=== PATIENT | male | born 1980 | race Caucasian/White ===

== ENCOUNTER → 2019-02-03 | Outpatient (CLI) | payer OTHER | LOC: CARD 11:55 | PROVIDERS: ATTEND Family Medicine | DX: G47.33 Obstructive sleep apnea (adult) (pediatric) (principal); Z82.49 Family history of ischemic heart disease and other diseases of the circulatory system | CPT/HCPCS: 93306 ==

== ENCOUNTER → 2019-02-10 | Outpatient (CLI) | payer OTHER ==
[~2019-02-10] MED LIST: CATHETER FLUSH 10 ML SYR IV PRN
[2019-02-10 13:31] VITALS: BP 116/75
[2019-02-10 13:34] VITALS: BP 115/74
[2019-02-10 13:42] VITALS: BP 145/80
[2019-02-10 13:43] VITALS: BP 186/81
[2019-02-10 13:44] VITALS: BP 186/81
[2019-02-10 13:45] VITALS: BP 148/77
--- NOTE | 2019-02-11 06:51 | STRESS TEST ---
DATE OF SERVICE: 02/10/2019 EXERCISE MYOVIEW STRESS TEST REPORT REFERRING PHYSICIAN: Dr. Vy Camarillo. Baseline heart rate is 53. Baseline blood pressure 123/75. Baseline EKG sinus rhythm with no ischemic changes. In summary, the patient was injected with 10.52 mCi of technetium-99 Myoview and the resting images were obtained. Then, the patient started exercising with a baseline heart rate, blood pressure and EKG mentioned above. The patient was able to exercise for a total of 6 minutes on standard Tello protocol. With peak exercise level, blood pressure was 186/81. EKG was showing minimal nondiagnostic changes. During recovery, heart rate and blood pressure returned to baseline. EKG returned to baseline. The resting and stress images were reviewed and compared in the short axis, horizontal long axis, and vertical long axis views. Review of the images showed good radiotracer uptake with no significant ischemia or infarction. SSS is 4, SDS 1, TID value 1.08. On the gated images, the left ventricle appeared to be slightly prominent with normal contractility. Calculated ejection fraction 49%. CONCLUSION: 1. Fair exercise tolerance, a total of 6 minutes on standard Tello protocol, total of 7.3 METS achieving 85% of maximum expected heart rate. 2. Appropriate heart rate and blood pressure response to exercise returned to baseline during recovery. 3. Minimal nondiagnostic EKG changes with exercise returned to baseline during recovery. 4. No significant ischemia or infarction on SPECT images. 5. Slightly prominent left ventricle systolic function is in the lower normal limit. Calculated ejection fraction 49%. Job ID: [id number] DocumentID: [id number] Dictated Date: 02/11/2019 06:26:41 Model And Mold Maker Date: 02/11/2019 06:50:42 Dictated By: FLORENTINO CERVANTES MD
== END ==
LOC: CARD 11:42
PROVIDERS: ATTEND Family Medicine
DX: G47.33 Obstructive sleep apnea (adult) (pediatric) (principal); Z82.49 Family history of ischemic heart disease and other diseases of the circulatory system
CPT/HCPCS: 78452; 93017

== ENCOUNTER 2021-12-07 12:44 | Emergency (ER) | payer SELFPAY ==
[~2021-12-07] VITALS: Ht 175.3 cm; Wt 166.9 kg
[2021-12-07 13:43] LABS: BASOPHILS # (AUTO) 0.1 10^3/uL (0.0-0.1); BASOPHILS % (AUTO) 2 % (0-10); EOSINOPHILS # (AUTO) 0.2 10^3/uL (0.0-0.3); EOSINOPHILS % (AUTO) 2 % (0-10); HEMATOCRIT 39 % (40-54); HEMOGLOBIN 12.8 g/dL (13.3-17.7); LYMPHOCYTES # (AUTO) 1.1 10^3/uL (1.0-4.0); LYMPHOCYTES % (AUTO) 18 % (12-44); MEAN CORPUSCULAR HEMOGLOBIN 33 pg (25-34); MEAN CORPUSCULAR HGB CONC 33 g/dL (32-36); MEAN CORPUSCULAR VOLUME 100 fL (80-99); MEAN PLATELET VOLUME 8.5 fL (9.0-12.2); MONOCYTES # (AUTO) 0.8 10^3/uL (0.0-1.0); MONOCYTES % (AUTO) 14 % (0-12); NEUTROPHILS # (AUTO) 3.9 10^3/uL (1.8-7.8); NEUTROPHILS % (AUTO) 64 % (42-75); PLATELET COUNT 158 10^3/uL (130-400); WHITE BLOOD COUNT 6.2 10^3/uL (4.3-11.0)
[2021-12-07 13:52] LABS: ALBUMIN 2.9 GM/DL (3.2-4.5)
[2021-12-07 13:53] LABS: POTASSIUM 3.8 MMOL/L (3.6-5.0)
[2021-12-07 13:54] LABS: CALCIUM 8.5 MG/DL (8.5-10.1)
[2021-12-07 13:55] LABS: INR 1.6 (0.8-1.4); PROTHROMBIN TIME PATIENT 19.9 SEC (12.2-14.7); TOTAL PROTEIN 8.4 GM/DL (6.4-8.2)
[2021-12-07 13:59] LABS: CREATININE SERUM 0.62 MG/DL (0.60-1.30)
--- NOTE | 2021-12-07 13:59 | ED GI ---
General Chief Complaint: Abdominal/GI Problems Stated Complaint: ABDOMEN DRAINED Nursing Triage Note: PT AMB TO RM 5 W REPORTS OF "FLUID ON ABDOMEN" ACCORDING TO HIS DOCTOR. 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 A&OX4, DENIES PAIN. PT C/O SOA W EXERTION. Source of Information: Patient Exam Limitations: No Limitations History of Present Illness Date Seen by Provider: Dec 07, 2021 Time Seen by Provider: 13:56 Initial Comments To ER with reports of abdominal distention secondary to his known alcoholic cirrhosis. He continues to drink alcohol but states that he has not been drinking as much lately. He was referred to ER by [facility] due to increasing dyspnea secondary to his abdominal distention. He had his first and only previous paracentesis done at [facility] in [place] in mid September. Timing/Duration: 1-2 Days Severity/Quality: Moderate Location: Generalized Abdomen Radiation: No Radiation Activities at Onset: None Allergies and Home Medications Allergies Coded Allergies: No Known Drug Allergies (Unverified , 12/07/21) Patient Home Medication List Home Medication List Reviewed: Yes Review of Systems Review of Systems Constitutional: see HPI EENTM: No Symptoms Reported Respiratory: No Symptoms Reported Cardiovascular: No Symptoms Reported Gastrointestinal: See HPI, Abdominal Pain, Nausea Genitourinary: No Symptoms Reported Musculoskeletal: no symptoms reported Skin: no symptoms reported Psychiatric/Neurological: No Symptoms Reported Endocrine: No Symptoms Reported Hematologic/Lymphatic: No Symptoms Reported Past Orkdbdg-Vkpncr-Rlxodr Hx Patient Social History Tobacco Use?: No Smoking Status: Former Smoker Use of E-Cig and/or Vaping dev: No Substance use?: No Alcohol Use?: No Immunizations Up To Date Influenza Vaccine Up-to-Date: Yes; Up-to-Date First/Initial COVID19 Vaccinat: 10/2021 COVID19 Vaccine Optometrist: MODERNA Physical Exam Vital Signs Vital Signs - First Documented 12/07/21 13:10 Temp 36.4 Pulse 106 Resp 24 B/P (MAP) 153/107 (122) Pulse Ox 95 O2 Delivery Room Air Capillary Refill : Less Than 3 Seconds Height/Weight/BMI Height: '" Weight: lbs. oz. kg; 54.00 BMI Method: General Appearance: WD/WN, no apparent distress HEENT: PERRL/EOMI, normal ENT inspection Neck: non-tender, full range of motion Respiratory: no respiratory distress, no accessory muscle use Gastrointestinal: normal bowel sounds, soft, other (Markedly distended. Bedside ultrasound shows about 8 to 10 cm of fluid between the abdominal wall and bowel.) Extremities: normal range of motion, non-tender, other (Thickened edematous darkened skin consistent with lipodermatosclerosis bilateral lower extremities.) Neurologic/Psychiatric: alert, normal mood/affect, oriented x 3 Skin: normal color, warm/dry Progress/Results/Core Measures Results/Orders Lab Results Laboratory Tests Test 12/07/21 13:36 12/07/21 15:34 Range/Units White Blood Count 6.2 4.3-11.0 10^3/uL Red Blood Count 3.89 L 4.30-5.52 10^6/uL Hemoglobin 12.8 L 13.3-17.7 g/dL Hematocrit 39 L 40-54 % Mean Corpuscular Volume 100 H 80-99 fL Mean Corpuscular Hemoglobin 33 25-34 pg Mean Corpuscular Hemoglobin Concent 33 32-36 g/dL Red Cell Distribution Width 17.3 H 10.0-14.5 % Platelet Count 158 130-400 10^3/uL Mean Platelet Volume 8.5 L 9.0-12.2 fL Immature Granulocyte % (Auto) 1 % Neutrophils (%) (Auto) 64 42-75 % Lymphocytes (%) (Auto) 18 12-44 % Monocytes (%) (Auto) 14 H 0-12 % Eosinophils (%) (Auto) 2 0-10 % Basophils (%) (Auto) 2 0-10 % Neutrophils # (Auto) 3.9 1.8-7.8 10^3/uL Lymphocytes # (Auto) 1.1 1.0-4.0 10^3/uL Monocytes # (Auto) 0.8 0.0-1.0 10^3/uL Eosinophils # (Auto) 0.2 0.0-0.3 10^3/uL Basophils # (Auto) 0.1 0.0-0.1 10^3/uL Immature Granulocyte # (Auto) 0.0 0.0-0.1 10^3/uL Prothrombin Time 19.9 H 12.2-14.7 SEC INR Comment 1.6 H 0.8-1.4 Sodium Level 135 135-145 MMOL/L Potassium Level 3.8 3.6-5.0 MMOL/L Chloride Level 98 98-107 MMOL/L Carbon Dioxide Level 29 21-32 MMOL/L Anion Gap 8 5-14 MMOL/L Blood Urea Nitrogen 4 L 7-18 MG/DL Creatinine 0.62 0.60-1.30 MG/DL Estimat Glomerular Filtration Rate 122 BUN/Creatinine Ratio 6 Glucose Level 94 70-105 MG/DL Calcium Level 8.5 8.5-10.1 MG/DL Corrected Calcium 9.4 8.5-10.1 MG/DL Total Bilirubin 3.4 H 0.1-1.0 MG/DL Aspartate Amino Transf (AST/SGOT) 58 H 5-34 U/L Alanine Aminotransferase (ALT/SGPT) 20 0-55 U/L Alkaline Phosphatase 73 40-136 U/L Total Protein 8.4 H 6.4-8.2 GM/DL Albumin 2.9 L 3.2-4.5 GM/DL Body Fluid Source PERITON Body Fluid Color RED Body Fluid Appearance MKD CLDY Body Fluid WBC 1450 /uL Body Fluid RBC 4850 /uL Body Fluid Polynuclear WBCs 4 % Body Fluid Mononuclear WBCs 38 % Body Fluid Lymphocytes 14 % Body Fluid Eosinophils 0 % Body Fluid Other Cells 10 % Body Fluid Glucose 88 MG/DL Body Fluid Total Protein 2.5 G/DL Body Fluid Albumin 1.1 G/DL Body Fluid Lactate Dehydrogenase 156 U/L Body Fluid Amylase 10 U/L My Orders Orders - LANI WATT DATA SUPPORT ANALYST Cbc With Automated Diff (12/07/21 13:25) Comprehensive Metabolic Panel (12/07/21 13:25) Protime With Inr (12/07/21 13:25) Albumin 25% 25 Gm/100 Ml (Albumin 25% 25 (12/07/21 15:15) Albumin 25% 25 Gm/100 Ml (Albumin 25% 25 (12/07/21 15:45) Body Fluid Cell Count (12/07/21 15:34) Body Fluid Culture (12/07/21 15:34) Albumin,Body Fluid (12/07/21 15:34) Amylase,Body Fluid (12/07/21 15:34) Glucose,Body Fluid (12/07/21 15:34) Ldh,Body Fluid (12/07/21 15:34) Total Protein,Body Fluid (12/07/21 15:34) Medications Given in ED Current Medications Medications Dose Ordered Sig/Gaurang Route Start Time Stop Time Status Last Admin Dose Admin Albumin Human 100 ml @ 50 mls/hr ONCE ONCE IV 12/07/21 15:15 12/07/21 17:14 DC 12/07/21 15:51 50 MLS/HR Albumin Human 100 ml @ 50 mls/hr ONCE ONCE IV 12/07/21 15:45 12/07/21 17:44 DC 12/07/21 17:50 50 MLS/HR Vital Signs/I&O 12/07/21 13:10 Temp 36.4 Pulse 106 Resp 24 B/P (MAP) 153/107 (122) Pulse Ox 95 O2 Delivery Room Air Blood Pressure Mean: 122 Departure Communication (Admissions) 1540-Dr. Mcdaniels has been here to place ultrasound-guided paracentesis drain. 5 L were removed with Vacutainer, 2 additional liters removed via gravity through the bag that comes with the kit. Remained hemodynamically stable. I did order 50 g of albumin IV (7 g of albumin /L removed). Impression Primary Impression: Ascites Disposition: HOME, SELF-CARE Condition: Stable Departure-Patient Inst. Decision time for Depature: 15:43 Referrals: JUSTA MCDANIELS HOLLY R MD (PCP/Family) Primary Care Physician Patient Instructions: Fluid in the Belly (Ascites) (DC) Add. Discharge Instructions: 1. Call Dr. Mcdaniels's office on Friday to make an appointment to be seen. Return to ER for any concerns. Keep the dressing on until Friday. Return to ER for any fevers pain or redness at the insertion site or continued leakage of ascites fluid from the puncture site. All discharge instructions reviewed with patient and/or family. Voiced understanding. LANI WATT APRN Dec 07, 2021 13:59
--- NOTE | 2021-12-07 14:09 | Consultation - Surgery ---
SOO CISNEROS 12/07/21 1409: History of Present Illness History of Present Illness Patient Consulted On(stevan/time) 12/07/21 14:03 Date Seen by Provider: Dec 07, 2021 Time Seen by Provider: 14:03 Reason for Visit: Abdominal distension History of Present Illness Mr. Chu is a 41 year old male with a past medical history of alcoholic cirrhosis and anxiety who presented to the ED today with complaint of abdominal swelling. He reports that he had a paracentesis done in [place] about 6 weeks ago. During his previous paracentesis he was hospitalized for a skin infection. He had 20 L drained the last time, 10 L the first day and 10 L the second day. He has been taking spironolactone and furosemide for the last 6 weeks. He says that 2-3 weeks ago his abdomen started to swell again and it has progressively gotten worse. He denies pain but he endorses discomfort and associated symptoms such as dyspnea, urinary incontinence, and early satiety. He reports feeling pressure on his abdomen. He says that certain positions can help improve the pressure a little bit but exertion and movement make it worse. He denies any radiation of his swelling. He says the swelling is better in the morning and seems to be worse at the end of the day. He reports the severity of his symptoms as a 7/10. Allergies and Home Medications Allergies Coded Allergies: No Known Drug Allergies (Unverified , 12/07/21) Past Odsctkm-Fieztj-Cwgtdy Hx Patient Social History Smoking Status: Former Smoker (Quit 1.5 years ago. Smoked 1 PPD for 8 years.) Type Used: Cigarettes Alcohol Use?: Yes Have you traveled recently?: No Surgeries History of Surgeries: Yes (Orchioplexy as child) Surgeries: Abdominal (Ventral hernia) Respiratory History of Respiratory Disorde: No Cardiovascular History of Cardiac Disorders: No Neurological History of Neurological Disord: No Genitourinary History of Genitourinary Disor: No Gastrointestinal History of Gastrointestinal Di: Yes Gastrointestinal Disorders: Cirrhosis (Alcoholic cirrhosis) Musculoskeletal History of Musculoskeletal Dis: No Endocrine History of Endocrine Disorders: No HEENT History of HEENT Disorders: No Cancer History of Cancer: No Psychosocial History of Psychiatric Problem: Yes Behavioral Health Disorders: Anxiety Integumentary History of Skin or Integumenta: Yes (Cyst excision from thigh) Family Medical History Significant Family History: Heart Disease (Uncle), CVA (Mother) Review of Systems-General Constitutional: No chills, No fever; weight gain Respiratory: No cough; short of breath Cardiovascular: No chest pain; palpitations Gastrointestinal: No abdominal pain; loss of appetite; No nausea, No vomiting Genitourinary: No frequency; incontinence Musculoskeletal: No back pain, No joint pain Skin: rash (LE stasis dermatitis B/L) Psychiatric/Neurological: Anxiety; Denies Headache Physical Exam-General Problems Physical Exam Vital Signs Vital Signs - First Documented 12/07/21 13:10 Temp 36.4 Pulse 106 Resp 24 B/P (MAP) 153/107 (122) Pulse Ox 95 O2 Delivery Room Air Capillary Refill : Less Than 3 Seconds General Appearance: WD/WN, no apparent distress, obese HEENT: PERRL/EOMI, scleral icterus (R), scleral icterus (L); No pale conjunctivae (R), No pale conjunctivae (L) Neck: non-tender; No lymphadenopathy (R), No lymphadenopathy (L) Respiratory: chest non-tender, lungs clear, normal breath sounds, no respiratory distress, no accessory muscle use Cardiovascular: normal peripheral pulses, no murmur, bradycardia, other (LE B/L edema) Peripheral Pulses: 1+ Dorsalis Pedis (R), 1+ Left Dors-Pedis (L); 2+ Radial Pulses (R), 2+ Radial Pulses (L) Gastrointestinal: non tender, abnormal bowel sounds (Absent bowel sounds most likely 2/2 fluid), distended; No guarding Extremities: non-tender, pedal edema, other (B/L LE stasis dermatitis) Neurologic/Psychiatric: butcher chicken and fish II-XII nml as tested, no motor/sensory deficits, alert, normal mood/affect, oriented x 3 Skin: jaundice Lymphatic: no adenopathy (Head and neck) Data Review Labs Laboratory Tests 12/07/21 13:36: White Blood Count 6.2, Red Blood Count 3.89L, Hemoglobin 12.8L, Hematocrit 39L, Mean Corpuscular Volume 100H, Mean Corpuscular Hemoglobin 33, Mean Corpuscular Hemoglobin Concent 33, Red Cell Distribution Width 17.3H, Platelet Count 158, Mean Platelet Volume 8.5L, Immature Granulocyte % (Auto) 1, Neutrophils (%) (Auto) 64, Lymphocytes (%) (Auto) 18, Monocytes (%) (Auto) 14H, Eosinophils (%) (Auto) 2, Basophils (%) (Auto) 2, Neutrophils # (Auto) 3.9, Lymphocytes # (Auto) 1.1, Monocytes # (Auto) 0.8, Eosinophils # (Auto) 0.2, Basophils # (Auto) 0.1, Immature Granulocyte # (Auto) 0.0, Prothrombin Time 19.9H, INR Comment 1.6H, Sodium Level 135, Potassium Level 3.8, Chloride Level 98, Carbon Dioxide Level 29, Anion Gap 8, Blood Urea Nitrogen 4L, Creatinine 0.62, Estimat Glomerular Filtration Rate 122, BUN/Creatinine Ratio 6, Glucose Level 94, Calcium Level 8.5, Corrected Calcium 9.4, Aspartate Amino Transf (AST/SGOT) 58H, Alanine Aminotransferase (ALT/SGPT) 20, Alkaline Phosphatase 73, Total Protein 8.4H, Albumin 2.9L Assessment/Plan Assessment/Plan Assessment/Plan Assessment: Abdominal swelling - 2/2 alcoholic cirrhosis Lower extremity edema Venous stasis dermatitis Anxiety Plan: The plan is to do a bedside paracentesis in the ED. Consent has been obtained. Outpatient follow up Pain control as needed Advise alcohol cessation Alcohol education JUSTA KNIGHT DO 12/08/21 0954: History of Present Illness History of Present Illness History of Present Illness Consult requested by Bimal Escobar for symptomatic ascites. Patient seen evaluated in the emergency department. Patient is a 41-year-old male with history of alcoholic cirrhosis and fatty liver disease. Patient states that he has been having worsening abdominal distention. Patient had to have a paracentesis approximately 6 weeks ago in [place]. Patient states that he had approximately 20 L drained during that hospital admission. Patient states that he has continued to swell back up. He has mild to moderate discomfort with the worse abdominal pain being of a 7 out of 10. He states that nothing seems to make it better or worse except for certain positions or activities. It does cause him to have worsening breathing and early satiety. Patient denies any nausea vomiting fever sweats chills shortness of breath or chest pain at this time Allergies and Home Medications Allergies Coded Allergies: No Known Drug Allergies (Unverified , 12/07/21) Patient Home Medication List Home Medication List Reviewed: Yes Past Fablncr-Bxuvsx-Tujjcm Hx Patient Social History Smoking Status: Former Smoker (Quit 1.5 years ago. Smoked 1 PPD for 8 years.) Type Used: Cigarettes Surgeries Surgeries: Abdominal (Ventral hernia) Reviewed Nursing Assessment Reviewed/Agree w Nursing PMH: Yes Family Medical History Significant Family History: No Pertinent Family Hx Review of Systems-General Constitutional: No chills, No fever; weight gain Respiratory: No cough; short of breath Cardiovascular: No chest pain; palpitations Gastrointestinal: abdominal pain, loss of appetite; No nausea, No vomiting Genitourinary: No frequency; incontinence Musculoskeletal: No back pain, No joint pain Skin: rash (LE stasis dermatitis B/L) Psychiatric/Neurological: Anxiety; Denies Headache All Other Systems Reviewed Negative Unless Noted: Yes (Negative excepted noted.) Physical Exam-General Problems Physical Exam General Appearance: WD/WN, no apparent distress, obese HEENT: PERRL/EOMI, normal ENT inspection Neck: non-tender, supple Respiratory: chest non-tender, no respiratory distress, no accessory muscle use Cardiovascular: regular rate, rhythm, no JVD, other (LE B/L edema) Gastrointestinal: non tender, distended (With fluid shift); No guarding Rectal: deferred Back: normal inspection, no CVA tenderness Extremities: non-tender, pedal edema, other (B/L LE stasis dermatitis) Neurologic/Psychiatric: no motor/sensory deficits, alert, normal mood/affect, oriented x 3 Skin: jaundice (Minimal) Lymphatic: no adenopathy (Head and neck) Assessment/Plan Assessment/Plan Assessment/Plan Alcoholic cirrhosis Symptomatic ascites Morbid obesity Lower extremity edema Venous stasis dermatitis Patient with symptomatic ascites. Patient discussed risk and benefits of having paracentesis performed. Patient understands risk and benefits and wishes to h ave this performed. We will proceed here in the emergency department. Patient will follow-up in the office in a couple weeks. Patient may benefit from Pleurx catheter placement intra-abdominal unit for continued drainage to where he does not have to come to the hospital and can drain it himself. Patient will follow- up in the office in a 1-2 weeks DATE OF SERVICE: 12/08/21 PREOPERATIVE DIAGNOSIS: Symptomatic abdominal ascites. POSTOPERATIVE DIAGNOSIS: Symptomatic abdominal ascites. PROCEDURE: Ultrasound-guided paracentesis. SURGEON: Justa Knight DO ANESTHESIA: Local. ESTIMATED BLOOD LOSS: Scant. COMPLICATIONS: None. INDICATIONS: The patient is a 41 male with symptomatic ascites.The patient understands risks and benefits of procedure and wished to proceed. Consent was signed and on the chart. DESCRIPTION OF PROCEDURE: The patient was prepped and draped in sterile fashion after ultrasound was used to isolate the best pocket for drainage. Local anesthetic was infiltrated. An 11 blade scalpel was then used to make a small incision. The [id number]-C-[id number] needle and catheter were then advanced through the abdominal wall until straw-colored fluid was withdrawn. The catheter was advanced, and the needle was removed. The 7000 mL of straw-colored fluid was withdrawn. The catheter was then removed, and a sterile bandage was applied. The patient tolerated procedure well without any complications. Patient was given albumin prior to discharge Supervisory-Addendum Brief Verification & Attestation Participated in pt care: history, MDM, physical Personally performed: exam, history, MDM, supervision of care Care discussed with: Medical Student Procedures: n/a, other (Performed by me) Results interpretation: Verified all documentation Verification and Attestation of Medical Student E/M Service A medical student performed and documented this service in my presence. I reviewed and verified all information documented by the medical student and made modifications to such information, when appropriate. I personally performed the physical exam and medical decision making. Justa Knight, Dec 07, 2021,19:54 SOO CISNEROS Dec 07, 2021 14:09 JUSTA KNIGHT DO Dec 08, 2021 09:54
[2021-12-07 14:57] LABS: BILIRUBIN,TOTAL 3.4 MG/DL (0.1-1.0)
[2021-12-07] MEDS ORDERED: ALBUMIN 25% 25 GM/100 ML 100 ML IV ONE ×2 (15:15→15:45)
[2021-12-07 16:33] LABS: ALBUMIN,BODY FLUID 1.1 G/DL; AMYLASE,BODY FLUID 10 U/L; GLUCOSE,BODY FLUID 88 MG/DL; LDH,BODY FLUID 156 U/L; TOTAL PROTEIN,BODY FLUID 2.5 G/DL
[2021-12-07 18:02] LABS: BODY FLUID SOURCE PERITON
[2021-12-07 18:03] LABS: BF OTHER CELLS 10 %; BODY FLUID APPEARENCE MKD CLDY; BODY FLUID COLOR RED; BODY FLUID RBC COUNT 4850 /uL; BODY FLUID WBC TOTAL COUNT 1450 /uL; LYMPHOCYTES,BODY FLUID 14 %
[2021-12-07 20:36] VITALS: BP 129/68
== END 2021-12-07 20:36 | disposition home or self-care (01) ==
LOC: EDUNIT# 12:44 → ER 12:47
DX: R18.8 Other ascites (principal); Z87.891 Personal history of nicotine dependence
CPT/HCPCS: 36415; 80053; 82042; 82150; 82945; 83615; 84157; 85025; 85610; 87070; 87205; 89051

== ENCOUNTER 2022-03-10 05:40 | Emergency (ER) | payer SELFPAY ==
[~2022-03-10] VITALS: Ht 172.7 cm; Wt 150.0 kg
[2022-03-10] MEDS ORDERED: ONDANSETRON 4 MG/2 ML (SDV) Z0FRAN ONE (05:44)
[2022-03-10] MEDS ORDERED: PANTOPRAZOLE 40 MG (PROTONIX) VIAL IV ONE (05:45)
[2022-03-10] MEDS ORDERED: PANTOPRAZOLE 40 MG (PROTONIX) VIAL ONE (05:45)
[2022-03-10] MEDS ORDERED: ONDANSETRON 4 MG/2 ML (SDV) Z0FRAN IVP ONE (05:45)
[2022-03-10 06:26] LABS: ALBUMIN 2.8 GM/DL (3.2-4.5); MONOCYTES % (AUTO) 8 % (0-12)
[2022-03-10 06:27] LABS: BASOPHILS # (AUTO) 0.1 10^3/uL (0.0-0.1); BASOPHILS % (AUTO) 1 % (0-10); EOSINOPHILS # (AUTO) 0.2 10^3/uL (0.0-0.3); EOSINOPHILS % (AUTO) 2 % (0-10); HEMATOCRIT 36 % (40-54); HEMOGLOBIN 11.8 g/dL (13.3-17.7); LYMPHOCYTES % (AUTO) 10 % (12-44); MEAN CORPUSCULAR HEMOGLOBIN 32 pg (25-34); MEAN CORPUSCULAR HGB CONC 33 g/dL (32-36); MEAN CORPUSCULAR VOLUME 96 fL (80-99); MEAN PLATELET VOLUME 10.6 fL (9.0-12.2); MONOCYTES # (AUTO) 0.8 10^3/uL (0.0-1.0); NEUTROPHILS # (AUTO) 7.5 10^3/uL (1.8-7.8); NEUTROPHILS % (AUTO) 78 % (42-75); PLATELET COUNT 89 10^3/uL (130-400); POTASSIUM 3.5 MMOL/L (3.6-5.0); WHITE BLOOD COUNT 9.6 10^3/uL (4.3-11.0)
[2022-03-10 06:28] LABS: CALCIUM 8.2 MG/DL (8.5-10.1)
[2022-03-10 06:29] LABS: TOTAL PROTEIN 7.9 GM/DL (6.4-8.2)
[2022-03-10 06:31] LABS: BILIRUBIN,TOTAL 2.2 MG/DL (0.1-1.0); INR 1.5 (0.8-1.4); PROTHROMBIN TIME PATIENT 18.7 SEC (12.2-14.7)
[2022-03-10 06:33] LABS: CREATININE SERUM 0.7 MG/DL (0.60-1.30)
[2022-03-10 06:36] LABS: MAGNESIUM 2.1 MG/DL (1.6-2.4)
[2022-03-10 06:37] LABS: CREATINE KINASE MB 0.9 NG/ML (<6.6)
[2022-03-10 06:37] LABS: AMPHETAMINE SCREEN, URINE NEGATIVE (NEGATIVE); BARBITURATE SCREEN URINE NEGATIVE (NEGATIVE); BENZODIAZEPINES SCREEN URINE NEGATIVE (NEGATIVE); CANNABINOID SCREEN, URINE NEGATIVE (NEGATIVE); COCAINE SCREEN URINE NEGATIVE (NEGATIVE); METHADONE STAT NEGATIVE (NEGATIVE); METHAMPHETAMINE SCREEN URINE S NEGATIVE (NEGATIVE); OPIATE SCREEN URINE NEGATIVE (NEGATIVE); OXYCODONE STAT NEGATIVE (NEGATIVE); PROPOXYPHENE STAT NEGATIVE (NEGATIVE); TRICYCLIC ANTIDEPRESSANTS SCRE NEGATIVE (NEGATIVE)
[2022-03-10] MEDS ORDERED: ANTACID SUSP 30 ML UDC (MYLANTA) PO ONE ×2 (06:45→20:15)
[2022-03-10] MEDS ORDERED: LIDOCAINE 2% VISCOUS 15 ML UDC PO ONE ×2 (06:45→20:15)
--- NOTE | 2022-03-10 06:58 | ED Chest Pain ---
General Chief Complaint: Chest Pain Stated Complaint: ABD PAIN,CP Nursing Triage Note: C/o SOA, abdominal pain and chest pain 0430. Reports that he has hx of liver disease with paracentesis. He admits that he was drinking last night. Emesis x 1 upon EMS to ER cot transfer Source: patient, EMS, old records Exam Limitations: no limitations History of Present Illness Date Seen by Provider: Mar 10, 2022 Time Seen by Provider: 05:41 Initial Comments This is a 41-year-old gentleman with alcoholic liver failure and significant ascites presents to the emergency room via EMS with complaints of chest pain and epigastric pain starting around 0400. He had concurrent nausea. He began vomiting on arrival to the ER. There is no evidence of coffee-ground emesis or hematemesis. Patient is afebrile. He experienced shortness of breath associated with this burning, squeezing chest pain. He is tender in the epigastrium but not diffusely tender in his markedly distended abdomen. He is afebrile. Despite his significant issues with liver failure, he continues to drink alcohol as recently as last night. Patient was initially seen and evaluated on arrival by Dr. Hwang who also placed orders. Verbal report was received from Dr. Hwang at shift change. Patient had a visit in November of this year during which paracentesis was performed by Dr. Knight. Allergies and Home Medications Allergies Coded Allergies: No Known Drug Allergies (Unverified , 12/07/21) Patient Home Medication List Home Medication List Reviewed: Yes Cefdinir (Cefdinir) 300 Mg Capsule, 300 MG PO BID Prescribed by: MATHEUS ZENG on 03/10/22 0930 Famotidine (Acid Passenger Vessel Chef (FAMOTIDINE)) 20 Mg Tablet, 20 MG PO BID Prescribed by: MATHEUS ZENG on 03/10/22 1646 Review of Systems Review of Systems Constitutional: no symptoms reported EENTM: No Symptoms Reported Respiratory: See HPI Cardiovascular: See HPI Gastrointestinal: See HPI Genitourinary: No Symptoms Reported Musculoskeletal: no symptoms reported Skin: no symptoms reported Psychiatric/Neurological: No Symptoms Reported Endocrine: No Symptoms Reported Hematologic/Lymphatic: No Symptoms Reported Past Tcoxopq-Bhctxt-Axzzfx Hx Patient Social History Tobacco Use?: No Substance use?: No Alcohol Use?: Yes Alcohol type: Hard Liquor Alcohol Frequency: Daily Pt feels they are or have been: No Immunizations Up To Date Influenza Vaccine Up-to-Date: Yes; Up-to-Date First/Initial COVID19 Vaccinat: Could not report exact dates but admits that he is current Past Medical History Surgery/Hospitalization HX: paracentesis x 2 Surgeries: Yes (Orchioplexy as child) Abdominal Respiratory: No Cardiac: No Neurological: No Genitourinary: No Gastrointestinal: Yes Cirrhosis Musculoskeletal: No Endocrine: No HEENT: No Cancer: No Psychosocial: Yes Anxiety Integumentary: Yes (Cyst excision from thigh) Family Medical History No Pertinent Family Hx Physical Exam Vital Signs Vital Signs - First Documented 03/10/22 06:00 O2 Flow Rate 2.00 Capillary Refill : Less Than 3 Seconds Height, Weight, BMI Height: '" Weight: lbs. oz. kg; 50.00 BMI Method: General Appearance: No Apparent Distress, WD/WN, Other (Patient reportedly was in some distress with vomiting on arrival) HEENT: PERRL/EOMI, Normal ENT Inspection Neck: Normal Inspection; No JVD Respiratory: Lungs Clear, Normal Breath Sounds, No Respiratory Distress Cardiovascular: Regular Rate, Rhythm, No Murmur Gastrointestinal: Normal Bowel Sounds, Distended (Markedly), Tenderness (Focused in the epigastrium), Other (Venous distention across a distended abdomen. Erythema with edematous skin over the lower abdominal wall.) Neurologic/Psychiatric: Alert, Oriented x3, No Motor/Sensory Deficits, Normal Mood/Affect Skin: Normal Color, Warm/Dry, Other (Erythematous edematous skin over the lower abdominal wall indicative of cellulitis) Progress/Results/Core Measures Results/Orders Lab Results Laboratory Tests Test 03/10/22 06:10 03/10/22 06:13 03/10/22 07:40 Range/Units White Blood Count 9.6 4.3-11.0 10^3/uL Red Blood Count 3.72 L 4.30-5.52 10^6/uL Hemoglobin 11.8 L 13.3-17.7 g/dL Hematocrit 36 L 40-54 % Mean Corpuscular Volume 96 80-99 fL Mean Corpuscular Hemoglobin 32 25-34 pg Mean Corpuscular Hemoglobin Concent 33 32-36 g/dL Red Cell Distribution Width 15.3 H 10.0-14.5 % Platelet Count 89 L 130-400 10^3/uL Mean Platelet Volume 10.6 9.0-12.2 fL Immature Granulocyte % (Auto) 0 % Neutrophils (%) (Auto) 78 H 42-75 % Lymphocytes (%) (Auto) 10 L 12-44 % Monocytes (%) (Auto) 8 0-12 % Eosinophils (%) (Auto) 2 0-10 % Basophils (%) (Auto) 1 0-10 % Neutrophils # (Auto) 7.5 1.8-7.8 10^3/uL Lymphocytes # (Auto) 1.0 1.0-4.0 10^3/uL Monocytes # (Auto) 0.8 0.0-1.0 10^3/uL Eosinophils # (Auto) 0.2 0.0-0.3 10^3/uL Basophils # (Auto) 0.1 0.0-0.1 10^3/uL Immature Granulocyte # (Auto) 0.0 0.0-0.1 10^3/uL Percent Immature Platelet Fraction 11.0 H 0.0-7.6 % Prothrombin Time 18.7 H 12.2-14.7 SEC INR Comment 1.5 H 0.8-1.4 Activated Partial Thromboplast Time 37 H 24-35 SEC Sodium Level 140 135-145 MMOL/L Potassium Level 3.5 L 3.6-5.0 MMOL/L Chloride Level 102 98-107 MMOL/L Carbon Dioxide Level 24 21-32 MMOL/L Anion Gap 14 5-14 MMOL/L Blood Urea Nitrogen 4 L 7-18 MG/DL Creatinine 0.70 0.60-1.30 MG/DL Estimat Glomerular Filtration Rate 118 BUN/Creatinine Ratio 6 Glucose Level 119 H 70-105 MG/DL Calcium Level 8.2 L 8.5-10.1 MG/DL Corrected Calcium 9.2 8.5-10.1 MG/DL Magnesium Level 2.1 1.6-2.4 MG/DL Total Bilirubin 2.2 H 0.1-1.0 MG/DL Aspartate Amino Transf (AST/SGOT) 59 H 5-34 U/L Alanine Aminotransferase (ALT/SGPT) 19 0-55 U/L Alkaline Phosphatase 118 40-136 U/L Total Creatine Kinase 42 30-200 U/L Creatine Kinase MB 0.9 <6.6 NG/ML Myoglobin 26.2 10.0-92.0 NG/ML Troponin I < 0.028 < 0.028 <0.028 NG/ML C-Reactive Protein High Sensitivity 10.53 H 0.00-0.50 MG/DL B-Type Natriuretic Peptide 58.7 <100.0 PG/ML Total Protein 7.9 6.4-8.2 GM/DL Albumin 2.8 L 3.2-4.5 GM/DL Amylase Level 24 L 25-125 U/L Lipase 29 8-78 U/L Serum Alcohol 99 H <10 MG/DL Urine Opiates Screen NEGATIVE NEGATIVE Urine Oxycodone Screen NEGATIVE NEGATIVE Urine Methadone Screen NEGATIVE NEGATIVE Urine Propoxyphene Screen NEGATIVE NEGATIVE Urine Barbiturates Screen NEGATIVE NEGATIVE Ur Tricyclic Antidepressants Screen NEGATIVE NEGATIVE Urine Phencyclidine Screen NEGATIVE NEGATIVE Urine Amphetamines Screen NEGATIVE NEGATIVE Urine Methamphetamines Screen NEGATIVE NEGATIVE Urine Benzodiazepines Screen NEGATIVE NEGATIVE Urine Cocaine Screen NEGATIVE NEGATIVE Urine Cannabinoids Screen NEGATIVE NEGATIVE My Orders Orders - MATHEUS LOPEZ MD Lidocaine 2% Viscous 15 Ml (Xylocaine Vi (03/10/22 06:45) Antacid Suspension (Mylanta Suspension (03/10/22 06:45) Troponin I [place] (03/10/22 08:00) Ceftriaxone 1 Gm Pre-Mix (Rocephin 1 Gm (03/10/22 09:26) Albumin 25% 25 Gm/100 Ml (Albumin 25% 25 (03/10/22 11:30) Albumin 25% 25 Gm/100 Ml (Albumin 25% 25 (03/10/22 11:30) General/Regular (03/10/22 Dinner) Medications Given in ED Vital Signs/I&O 03/10/22 03/10/22 03/10/22 03/10/22 05:42 05:42 05:42 06:00 Temp 36.2 36.2 36.2 Pulse 98 98 98 Resp B/P (MAP) 156/99 (118) 135/89 135/89 Pulse Ox 95 95 O2 Delivery Room Air Room Air Room Air Nasal Cannula O2 Flow Rate 2.00 03/10/22 03/10/22 06:10 20:39 Pulse 86 Resp 24 B/P (MAP) 132/85 Pulse Ox 95 97 O2 Delivery Nasal Cannula O2 Flow Rate 2.00 Blood Pressure Mean: 104 Progress Progress Note #1: Time: 07:47 Progress Note EKG and troponin were unremarkable. Chest x-ray revealed some pleural effusion and possible infiltrate of the right. Patient will be treated for possible pneumonia. GI cocktail was well-tolerated and almost completely relieved his pain which was rated as 5/10 prior to treatment. It also significantly improved his tenderness. He feels much better. We are awaiting a delta troponin at 0800. Patient's enormous ascites is likely contributing to his symptoms and he may benefit significantly from another paracentesis. I have contacted Dr. Knight who will present to the ER and evaluate the patient for possible paracentesis this morning. I discussed the patient's social circumstances with him. He reports living alone and having no insurance or financial social media designer such as Medicaid. He ideally would like to get back to work full-time, but that seems unlikely by this providers judgment based on his current condition and social circumstances. He is rather uncapped with urine soaked clothes, stool on his feet, and extremely long toenails. He ambulates with a walker. I have advised him to meet with his ed case manager at [facility] and revisit the possibility of obtaining Medicaid, other social media designer, disability, alcohol rehab, physical rehab, and perhaps placement in a senior care or assisted living facility. Progress Note #2: Progress Note Dr. Knight presented to the emergency room to perform paracentesis. Bedside ultrasound confirmed sufficient fluid space and paracentesis was successful. Patient tolerated paracentesis well. After 4 L a dose of albumin was administered. In total, 10 L of fluid was drained. Drain was then removed by nursing staff and incision site dressed. Blood pressure remained stable. Patient did not experience any alcohol withdrawal. Discharge was delayed as patient had no transportation had home. We did discuss the need for alcohol cessation to help slow the progression of liver failure. Advised him to stop drinking under the direction of a physician and to do so with a taper rather than abrupt cessation. Antibiotics were prescribed for possible pneumonia and the remnant of abdominal wall cellulitis. See discharge instructions. Initial ECG Impression Date: Mar 10, 2022 Initial ECG Impression Time: 05:51 Initial ECG Rate: 90 Initial ECG Rhythm: Normal Sinus Comment Sinus rhythm with no ST elevation or depression. Prolonged QT interval with QTC at 515 ms. No axis deviation. Diagnostic Imaging Diagonstic Imaging: Xray Plain Films/CT/US/NM/MRI: chest Comments Chest x-ray viewed by me and report reviewed. See report below: NAME: MALISSA MURRAY [facility] REC#: [id number] PT STATUS: REG ER : 1980 PHYSICIAN: SORIN HWANG DO ADMIT DATE: 03/10/22/ER Draft Date of Exam:03/10/22 CHEST 1 VIEW, AP/PA ONLY INDICATION: Chest pain. Time of Exam: 6:25 AM No prior studies are available for comparison. The heart is enlarged. There appears to be infiltrate in the right lung base. There is also a small right effusion. Left lung is clear. There is no pneumothorax. IMPRESSION: Right basilar infiltrate and small right effusion. Dictated on workstation # [id number] Dict: 03/10/22 0656 Trans: 03/10/22 0658 JUDY [id number] Interpreted by: SARAHI DUENAS MD Departure Impression Primary Impression: Chest pain Qualified Codes: R07.9 - Chest pain, unspecified Additional Impressions: Nausea & vomiting Qualified Codes: R11.2 - Nausea with vomiting, unspecified Liver failure Qualified Codes: K72.10 - Chronic hepatic failure without coma Alcohol dependence Qualified Codes: F10.29 - Alcohol dependence with unspecified alcohol-induce d disorder Thrombocytopenia Abdominal wall cellulitis Disposition: 01 HOME, SELF-CARE Condition: Improved Departure-Patient Inst. Decision time for Depature: 17:00 Referrals: SELENA OATES MD (PCP/Family) Primary Care Physician Patient Instructions: ALCOHOL AND SUBSTANCE ABUSE, Liver Failure Diet Add. Discharge Instructions: Complete your antibiotics as prescribed. Start Pepcid 20 mg twice daily to help with heartburn and stomach pain. You are advised to quit alcohol completely to prevent worsening of your liver disease. Please do so under the direction of your physician and do not stop drinking alcohol abruptly as this may cause dangerous withdrawals. Follow-up with your primary care provider soon as possible. Return to the emergency room if you have worsening symptoms. All discharge instructions reviewed with patient and/or family. Voiced understanding. Scripts Famotidine (Acid Passenger Vessel Chef (FAMOTIDINE)) 20 Mg Tablet 20 MG PO BID, #60 TAB Prov: MATHEUS LOPEZ MD 03/10/22 Cefdinir (Cefdinir) 300 Mg Capsule 300 MG PO BID, #20 CAP 0 Refills Prov: MATHEUS LOPEZ MD 03/10/22 Copy Copies To 1: SELENA OATES MD Copies To 2: JUSTA KNIGHT JOSHUA T MD Mar 10, 2022 06:58
[2022-03-10] MEDS ORDERED: cefTRIAXone 1 GM PRE-MIX 50 ML IV STA (09:26)
[2022-03-10] MEDS ORDERED: CEFD300C3 PO (09:30)
--- NOTE | 2022-03-10 10:33 | Consultation - Surgery ---
SOO CISNEROS 03/10/22 1032: History of Present Illness History of Present Illness Patient Consulted On(stevan/time) 03/10/22 10:27 Date Seen by Provider: Mar 10, 2022 Time Seen by Provider: 09:05 Reason for Visit: Abdominal pain History of Present Illness Mr. Chu is a 41 year old male with a pas tmedical history of alcoholic liver failure and ascites. He presented to the ED with complaints of chest pain and abdominal pain with associated nausea and vomiting. He reported he has had abdominal swelling for many weeks. He continues to drink alcohol. He had a paracentesis performed by us in November. He has not seen a hepatoligist. Allergies and Home Medications Allergies Coded Allergies: No Known Drug Allergies (Unverified , 12/07/21) Patient Home Medication List Cefdinir (Cefdinir) 300 Mg Capsule, 300 MG PO BID Prescribed by: MATHEUS ZENG on 03/10/22 0930 Famotidine (Acid Investigation Clerk (FAMOTIDINE)) 20 Mg Tablet, 20 MG PO BID Prescribed by: MATHEUS ZENG on 03/10/22 1646 Past Ptosovm-Jgolbh-Rpiyce Hx Patient Social History Type Used: Cigarettes Alcohol Use?: Yes Have you traveled recently?: No Surgeries History of Surgeries: Yes (Orchioplexy as child) Surgeries: Abdominal Respiratory History of Respiratory Disorde: No Cardiovascular History of Cardiac Disorders: No Neurological History of Neurological Disord: No Genitourinary History of Genitourinary Disor: No Gastrointestinal History of Gastrointestinal Di: Yes Gastrointestinal Disorders: Cirrhosis Musculoskeletal History of Musculoskeletal Dis: No Endocrine History of Endocrine Disorders: No HEENT History of HEENT Disorders: No Cancer History of Cancer: No Psychosocial History of Psychiatric Problem: Yes Behavioral Health Disorders: Anxiety Integumentary History of Skin or Integumenta: Yes (Cyst excision from thigh) Family Medical History Significant Family History: No Pertinent Family Hx Review of Systems-General Constitutional: No chills, No fever Respiratory: No cough; short of breath Cardiovascular: chest pain; No palpitations Gastrointestinal: abdominal pain, nausea, vomiting Skin: change in color (Jaundiced), other (Panniculitis) Physical Exam-General Problems Physical Exam Vital Signs Vital Signs - First Documented 03/10/22 06:00 O2 Flow Rate 2.00 Capillary Refill : Less Than 3 Seconds General Appearance: WD/WN, mild distress (Patient uncomfortable and in pain) HEENT: PERRL/EOMI, scleral icterus (R), scleral icterus (L) Neck: full range of motion, supple Respiratory: no respiratory distress, no accessory muscle use Cardiovascular: normal peripheral pulses, regular rate, rhythm Gastrointestinal: distended; No guarding Extremities: normal range of motion, non-tender, normal inspection Neurologic/Psychiatric: alert, normal mood/affect, oriented x 3 Skin: warm/dry, jaundice Data Review Labs Laboratory Tests 03/10/22 06:10: White Blood Count 9.6, Red Blood Count 3.72L, Hemoglobin 11.8L, Hematocrit 36L, Mean Corpuscular Volume 96, Mean Corpuscular Hemoglobin 32, Mean Corpuscular Hemoglobin Concent 33, Red Cell Distribution Width 15.3H, Platelet Count 89L, Mean Platelet Volume 10.6, Immature Granulocyte % (Auto) 0, Neutrophils (%) (Auto) 78H, Lymphocytes (%) (Auto) 10L, Monocytes (%) (Auto) 8, Eosinophils (%) (Auto) 2, Basophils (%) (Auto) 1, Neutrophils # (Auto) 7.5, Lymphocytes # (Auto) 1.0, Monocytes # (Auto) 0.8, Eosinophils # (Auto) 0.2, Basophils # (Auto) 0.1, Immature Granulocyte # (Auto) 0.0, Percent Immature Platelet Fraction 11.0H, Prothrombin Time 18.7H, INR Comment 1.5H, Activated Partial Thromboplast Time 37H, Sodium Level 140, Potassium Level 3.5L, Chloride Level 102, Carbon Dioxide Level 24, Anion Gap 14, Blood Urea Nitrogen 4L, Creatinine 0.70, Estimat Glomerular Filtration Rate 118, BUN/Creatinine Ratio 6, Glucose Level 119H, Calcium Level 8.2L, Corrected Calcium 9.2, Magnesium Level 2.1, Total Bilirubin 2.2H, Aspartate Amino Transf (AST/SGOT) 59H, Alanine Aminotransferase (ALT/SGPT) 19, Alkaline Phosphatase 118, Total Creatine Kinase 42, Creatine Kinase MB 0.9, Myoglobin 26.2, Troponin I < 0.028, C-Reactive Protein High Sensitivity 10.53H, B-Type Natriuretic Peptide 58.7, Total Protein 7.9, Albumin 2.8L, Amylase Level 24L, Lipase 29, Serum Alcohol 99H 03/10/22 06:13: Urine Opiates Screen NEGATIVE, Urine Oxycodone Screen NEGATIVE, Urine Methadone Screen NEGATIVE, Urine Propoxyphene Screen NEGATIVE, Urine Barbiturates Screen NEGATIVE, Ur Tricyclic Antidepressants Screen NEGATIVE, Urine Phencyclidine Screen NEGATIVE, Urine Amphetamines Screen NEGATIVE, Urine Methamphetamines Screen NEGATIVE, Urine Benzodiazepines Screen NEGATIVE, Urine Cocaine Screen NEGATIVE, Urine Cannabinoids Screen NEGATIVE 03/10/22 07:40: Troponin I < 0.028 Radiology Date of Exam:03/10/22 CHEST 1 VIEW, AP/PA ONLY INDICATION: Chest pain. Time of Exam: 6:25 AM No prior studies are available for comparison. The heart is enlarged. There appears to be infiltrate in the right lung base. There is also a small right effusion. Left lung is clear. There is no pneumothorax. IMPRESSION: Right basilar infiltrate and small right effusion. Assessment/Plan Assessment/Plan Assessment/Plan Assessment: Abdominal pain Cirrhosis Ascites Alcohol use disorder Hyperbilirubinemia Hypoalbuminemia Plan: Performed abdominal paracentesis in ED Advised follow up with child welfare director if possible Otherwise advised PleurX catheter Follow up in clinic in 2 weeks Clinical Quality Measures AMI/AHF: ASA po Prior to arrival: Yes JUSTA KNIGHT DO 03/10/22 1307: History of Present Illness History of Present Illness History of Present Illness Consult requested by Dr. Coronel for symptomatic ascites. Patient is a 41 year old male with liver failure and ascites secondary to Etoh use. Patient is having epigastric abdominal pain. Increasing distention for several weeks. Patient states nothing makes better or worse. He has parace ntesis previously in November. Has had some nausea and vomiting. He was discussed seeing a child welfare director before but has not to date. Patient with no other complaints at this time. Allergies and Home Medications Allergies Coded Allergies: No Known Drug Allergies (Unverified , 12/07/21) Patient Home Medication List Home Medication List Reviewed: Yes Cefdinir (Cefdinir) 300 Mg Capsule, 300 MG PO BID Prescribed by: MATHEUS ZENG on 03/10/22 0930 Famotidine (Acid Investigation Clerk (FAMOTIDINE)) 20 Mg Tablet, 20 MG PO BID Prescribed by: MATHEUS ZENG on 03/10/22 1646 Review of Systems-General Constitutional: No chills, No fever EENTM: No blurred vision, No double vision Respiratory: No cough; short of breath Cardiovascular: chest pain; No palpitations Gastrointestinal: abdominal pain, nausea, vomiting Genitourinary: No decreased output, No discharge Musculoskeletal: No back pain, No joint pain Skin: change in color (Jaundiced), other (Panniculitis vs chronic skin change) Psychiatric/Neurological: Denies Anxiety; Depressed, Emotional Problems All Other Systems Reviewed Negative Unless Noted: Yes (Negative excepted noted.) Physical Exam-General Problems Physical Exam General Appearance: WD/WN, obese; No mild distress (Patient uncomfortable and in pain) HEENT: PERRL/EOMI, scleral icterus (R), scleral icterus (L) Neck: full range of motion, supple Respiratory: chest non-tender, no respiratory distress, no accessory muscle use Cardiovascular: regular rate, rhythm, no JVD Gastrointestinal: distended (with fluid wave); No guarding, No rebound; tenderness (more in upper portion of abdomen) Rectal: deferred Back: no CVA tenderness, no vertebral tenderness Extremities: normal range of motion, non-tender, normal inspection Neurologic/Psychiatric: alert, normal mood/affect, oriented x 3 Skin: warm/dry, jaundice Lymphatic: no adenopathy Assessment/Plan Assessment/Plan Assessment/Plan Epigastric Abdominal pain Cirrhosis Ascites Alcohol use disorder Hyperbilirubinemia Hypoalbuminemia Performed abdominal paracentesis in ED Advised follow up with child welfare director if possible Otherwise advised PleurX catheter could be done so can maintain abdomen to be drained on regular basis, will consider. Albumin due to removing large volume fluid Follow up in clinic in 2 weeks DATE OF SERVICE: 03/10/22 PREOPERATIVE DIAGNOSIS: Symptomatic abdominal ascites. POSTOPERATIVE DIAGNOSIS: Symptomatic abdominal ascites. PROCEDURE: Ultrasound-guided paracentesis. SURGEON: Justa Knight DO ANESTHESIA: Local. ESTIMATED BLOOD LOSS: Scant. COMPLICATIONS: None. INDICATIONS: The patient is a 41 male with symptomatic ascites.The patient understands risks and benefits of procedure and wished to proceed. Consent was signed and on the chart. DESCRIPTION OF PROCEDURE: The patient was prepped and draped in sterile fashion after ultrasound was used to isolate the best pocket for drainage. Local anesthetic was infiltrated. An 11 blade scalpel was then used to make a small incision. The [id number] needle and catheter were then advanced through the abdominal wall until becky colored fluid was withdrawn. The catheter was advanced, and the needle was removed. 10,000 mL of becky-colored fluid was withdrawn. The catheter was then removed, and a sterile bandage was applied. The patient tolerated procedure well without any complications. Supervisory-Addendum Brief Verification & Attestation Participated in pt care: history, MDM, physical Personally performed: exam, history, MDM, supervision of care Care discussed with: Medical Student Procedures: performed (by me) Results interpretation: Verified all documentation Verification and Attestation of Medical Student E/M Service A medical student performed and documented this service in my presence. I reviewed and verified all information documented by the medical student and made modifications to such information, when appropriate. I personally performed the physical exam and medical decision making. Justa Knight, Mar 10, 2022,21:21 SOO CISNEROS Mar 10, 2022 10:32 JUSTA KNIGHT DO Mar 10, 2022 13:07
[2022-03-10] MEDS ORDERED: ALBUMIN 25% 25 GM/100 ML 100 ML IV ONE (11:30)
[2022-03-10] MEDS ORDERED: ALBUMIN 25% 25 GM/100 ML 50 ML IV ONE (11:30)
[2022-03-10] MEDS ORDERED: FAMO20TA3 PO (16:46)
[2022-03-10] MEDS ORDERED: SUCRALFATE 1 GM (CARAFATE) TAB PO ONE (20:15)
[2022-03-10 20:39] VITALS: BP 132/85
== END 2022-03-10 20:47 | disposition home or self-care (01) ==
LOC: EDUNIT# 05:40 → ER 05:41
DX: K70.40 Alcoholic hepatic failure without coma (principal); F10.29 Alcohol dependence with unspecified alcohol-induced disorder; D69.6 Thrombocytopenia, unspecified; L03.311 Cellulitis of abdominal wall; I45.81 Long QT syndrome; Y90.4 Blood alcohol level of 80-99 mg/100 ml
CPT/HCPCS: 71045; 80053; 80306; 82150; 82550; 82553; 83690; 83735; 83874; 83880; 84484; 85025; 85610; 85730; 86141; 93005; 93041; 99285; G0480; 36415; 80320

== ENCOUNTER 2022-06-28 00:46 | Inpatient (IN) | payer SELFPAY ==
[~2022-06-28] VITALS: Ht 172.7 cm; Wt 136.7 kg
[~2022-06-28 00:46] MED LIST changes: -CATHETER FLUSH 10 ML SYR IV PRN; +CEFD300C3 PO; +FAMO20TA3 PO
[2022-06-28] MEDS ORDERED: ONDANSETRON 4 MG/2 ML (SDV) Z0FRAN IVP ONE (01:00)
[2022-06-28 01:06] LABS: BASOPHILS # (AUTO) 0.1 10^3/uL (0.0-0.1); BASOPHILS % (AUTO) 2 % (0-10); HEMOGLOBIN 10.7 g/dL (13.3-17.7)
[2022-06-28 01:08] LABS: EOSINOPHILS # (AUTO) 0.2 10^3/uL (0.0-0.3); EOSINOPHILS % (AUTO) 4 % (0-10); HEMATOCRIT 32 % (40-54); LYMPHOCYTES # (AUTO) 0.8 10^3/uL (1.0-4.0); LYMPHOCYTES % (AUTO) 17 % (12-44); MEAN CORPUSCULAR HEMOGLOBIN 32 pg (25-34); MEAN CORPUSCULAR HGB CONC 33 g/dL (32-36); MEAN CORPUSCULAR VOLUME 95 fL (80-99); MEAN PLATELET VOLUME 8.8 fL (9.0-12.2); MONOCYTES # (AUTO) 0.7 10^3/uL (0.0-1.0); MONOCYTES % (AUTO) 14 % (0-12); NEUTROPHILS % (AUTO) 63 % (42-75); PLATELET COUNT 120 10^3/uL (130-400); WHITE BLOOD COUNT 4.7 10^3/uL (4.3-11.0)
[2022-06-28 01:17] LABS: INR 1.4 (0.8-1.4); PROTHROMBIN TIME PATIENT 17.7 SEC (12.2-14.7)
--- NOTE | 2022-06-28 01:23 | ED General ---
General Stated Complaint: COATES,POSSIBLE ASCITES Source of Information: Patient History of Present Illness Date Seen by Provider: Jun 28, 2022 Time Seen by Provider: 00:55 Initial Comments PT ARRIVES VIA POV FROM HOME--LIVES BY HIMSELF IN [place] PT WITH MULTIPLE COMPLAINTS STATES SYMPTOMS BEGAN AROUND 1700 THIS EVENING C/O HEADACHE--IS GONE NOW C/O SHORTNESS OF BREATH--PT WITH CHRONIC DYSPNEA, AND WEARS HOME O2 AT 2L/NC CONTINUOUSLY NO CHEST PAIN C/O NAUSEA, NO VOMITING. NORMAL BM TODAY NO PAIN OR BURNING ON URINATION NO KNOWN FEVER/SWEATS/CHILLS NO FALLS OR INJURIES PT WITH CHRONIC LIVER FAILURE AND ASCITES HAS HAD PARACENTESIS X 3--TWICE AT [place] AND ONCE HERE--LAST TIME WAS 3-4 MONTHS AGO, PER PT NO ABDOMINAL PAIN PT DOES NOT KNOW IF HE HAS HEPATITIS PT STATES HE HAS NOT SEEN A LIVER SPECIALIST PT WITH LONGSTANDING ALCOHOL ABUSE--UP TO A LITER TODAY AT TIMES. STATES HE HAS ONLY HAD 1/2 PINT OF HARD LIQUOR TODAY. 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 PCP: DR. OATES AT [facility]--HAS NOT SEEN IN A FEW MONTHS. Allergies and Home Medications Allergies Coded Allergies: No Known Drug Allergies (Unverified , 12/07/21) Patient Home Medication List Cefdinir (Cefdinir) 300 Mg Capsule, 300 MG PO BID Prescribed by: MATHEUS ZENG on 03/10/22 0930 Famotidine (Acid [place] (FAMOTIDINE)) 20 Mg Tablet, 20 MG PO BID Prescribed by: MATHEUS ZENG on 03/10/22 1646 Review of Systems Review of Systems Constitutional: no symptoms reported EENTM: no symptoms reported Respiratory: see HPI; No cough; short of breath Cardiovascular: No chest pain Gastrointestinal: see HPI, nausea Genitourinary: other (PT IS INCONTINENT) Musculoskeletal: no symptoms reported Skin: no symptoms reported Psychiatric/Neurological: See HPI, Headache Hematologic/Lymphatic: No Symptoms Reported Immunological/Allergic: no symptoms reported Past Zgrqkvw-Imjwie-Ixhxsg Hx Patient Social History Tobacco Use?: Yes Tobacco type used: Cigarettes Smoking Status: Former Smoker Substance use?: No Alcohol Use?: Yes Alcohol type: Hard Liquor Alcohol Frequency: Daily Immunizations Up To Date First/Initial COVID19 Vaccinat: Could not report exact dates but admits that he is current Past Medical History Surgery/Hospitalization HX: paracentesis x 3 Surgeries: Yes (Orchioplexy as child) Abdominal Respiratory: Yes (O2 AT 2L/NC CONTINUOUSLY) Cardiac: No Neurological: No Genitourinary: No Gastrointestinal: Yes (ASCITES) Liver Disease/Jaundice, Cirrhosis Musculoskeletal: No Endocrine: Yes (OBESITY) HEENT: No Cancer: No Psychosocial: Yes (ALCOHOLISM) Anxiety Integumentary: Yes (Cyst excision from thigh) Recent Skin Changes Family Medical History No Pertinent Family Hx Physical Exam Vital Signs Capillary Refill : Height, Weight, BMI Height: '" Weight: lbs. oz. kg; 50.00 BMI Method: General Appearance: Other (OBESE, WITH MASSIVE ABDOMEN WITH ASCITES. PT IS EXTREMELY MALODOROUS--REEKS OF OLD URINE AND FECES; PT IS EXTREMELY UNKEMPT--FEET AND LEGS AND LOWER ABODMEN ARE COVERED IN OLD DRIED URINE, AND FEET ARE BAREFOOT AND FILTHY AND COVERED IN URINE AND OLD DRIED FECES. TOENAILS EXTREMLY LONG. ) HEENT: PERRL/EOMI, Pale Conjunctivae (L), Pale Conjunctivae (R) Neck: Normal Inspection Respiratory: Normal Breath Sounds, No Accessory Muscle Use, No Respiratory Distress Cardiovascular: Regular Rate, Rhythm Gastrointestinal: Non Tender, Other (ABDOMEN IS MASSIVE WITH ASCITES. MASSIVE PANNUS WITH CHRONIC SKIN CHANGES TO LOWER ABDOMEN, AND LOWER ABDOMEN AND GENITAL AREA COVERED WITH DRIED URINE. ) Extremity: Other (LEGS WITH 2+ EDEMA, EXTENSIVE CHRONIC VENOUS STASIS CHANGES BILATERALLY. 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 Norm as Tested, Other (FLAT AFFECT) Skin: Warm/Dry, Jaundice, Pallor Focused Exam Lactate Level 06/28/22 00:59: Lactic Acid Level 1.90 Lactic Acid Level Laboratory Tests Test 06/28/22 00:59 Lactic Acid Level 1.90 MMOL/L (0.50-2.00) Progress/Results/Core Measures Suspected Sepsis SIRS Temperature: Pulse: Respiratory Rate: Laboratory Tests 06/28/22 00:59: White Blood Count 4.7 Blood Pressure / Mean: 06/28/22 00:59: Lactic Acid Level 1.90 Laboratory Tests 06/28/22 00:59: Creatinine 0.61, INR Comment 1.4, Platelet Count 120L, Total Bilirubin 1.9H Results/Orders Lab Results Laboratory Tests Test 06/28/22 00:58 06/28/22 00:59 06/28/22 01:19 Range/Units SARS-CoV-2 RNA (RT-PCR) Not Detected Not Detecte White Blood Count 4.7 4.3-11.0 10^3/uL Red Blood Count 3.38 L 4.30-5.52 10^6/uL Hemoglobin 10.7 L 13.3-17.7 g/dL Hematocrit 32 L 40-54 % Mean Corpuscular Volume 95 80-99 fL Mean Corpuscular Hemoglobin 32 25-34 pg Mean Corpuscular Hemoglobin Concent 33 32-36 g/dL Red Cell Distribution Width 16.8 H 10.0-14.5 % Platelet Count 120 L 130-400 10^3/uL Mean Platelet Volume 8.8 L 9.0-12.2 fL Immature Granulocyte % (Auto) 0 % Neutrophils (%) (Auto) 63 42-75 % Lymphocytes (%) (Auto) 17 12-44 % Monocytes (%) (Auto) 14 H 0-12 % Eosinophils (%) (Auto) 4 0-10 % Basophils (%) (Auto) 2 0-10 % Neutrophils # (Auto) 3.0 1.8-7.8 10^3/uL Lymphocytes # (Auto) 0.8 L 1.0-4.0 10^3/uL Monocytes # (Auto) 0.7 0.0-1.0 10^3/uL Eosinophils # (Auto) 0.2 0.0-0.3 10^3/uL Basophils # (Auto) 0.1 0.0-0.1 10^3/uL Immature Granulocyte # (Auto) 0.0 0.0-0.1 10^3/uL Percent Immature Platelet Fraction 0.7 0.0-7.6 % Erythrocyte Sedimentation Rate 91 H 0-15 MM/HR Prothrombin Time 17.7 H 12.2-14.7 SEC INR Comment 1.4 0.8-1.4 Activated Partial Thromboplast Time 41 H 24-35 SEC Sodium Level 138 135-145 MMOL/L Potassium Level 3.7 3.6-5.0 MMOL/L Chloride Level 103 98-107 MMOL/L Carbon Dioxide Level 24 21-32 MMOL/L Anion Gap 11 5-14 MMOL/L Blood Urea Nitrogen 8 7-18 MG/DL Creatinine 0.61 0.60-1.30 MG/DL Estimat Glomerular Filtration Rate 123 BUN/Creatinine Ratio 13 Glucose Level 100 70-105 MG/DL Lactic Acid Level 1.90 0.50-2.00 MMOL/L Calcium Level 8.4 L 8.5-10.1 MG/DL Corrected Calcium 9.6 8.5-10.1 MG/DL Magnesium Level 1.9 1.6-2.4 MG/DL Total Bilirubin 1.9 H 0.1-1.0 MG/DL Aspartate Amino Transf (AST/SGOT) 56 H 5-34 U/L Alanine Aminotransferase (ALT/SGPT) 20 0-55 U/L Alkaline Phosphatase 92 40-136 U/L Ammonia 61 H 11-32 UMOL/L C-Reactive Protein High Sensitivity 10.97 H 0.00-0.50 MG/DL Total Protein 7.5 6.4-8.2 GM/DL Albumin 2.5 L 3.2-4.5 GM/DL Amylase Level 22 L 25-125 U/L Lipase 31 8-78 U/L Serum Alcohol 93 H <10 MG/DL Urine Color ORANGE Urine Clarity CLEAR Urine pH 6.0 5-9 Urine Specific [place] >=1.030 1.016-1.022 Urine Protein TRACE H NEGATIVE Urine Glucose (UA) TRACE H NEGATIVE Urine Ketones NEGATIVE NEGATIVE Urine Nitrite NEGATIVE NEGATIVE Urine Bilirubin 2+ H NEGATIVE Urine Urobilinogen >=8.0 < = 1.0 MG/DL Urine Leukocyte Esterase NEGATIVE NEGATIVE Urine RBC (Auto) NEGATIVE NEGATIVE Urine RBC NONE /HPF Urine WBC NONE /HPF Urine Squamous Epithelial Cells 0-2 /HPF Urine Crystals NONE /LPF Urine Bacteria TRACE /HPF Urine Casts NONE /LPF Urine Mucus SMALL H /LPF Urine Culture Indicated NO Urine Opiates Screen NEGATIVE NEGATIVE Urine Oxycodone Screen NEGATIVE NEGATIVE Urine Methadone Screen NEGATIVE NEGATIVE Urine Propoxyphene Screen NEGATIVE NEGATIVE Urine Barbiturates Screen NEGATIVE NEGATIVE Ur Tricyclic Antidepressants Screen NEGATIVE NEGATIVE Urine Phencyclidine Screen NEGATIVE NEGATIVE Urine Amphetamines Screen NEGATIVE NEGATIVE Urine Methamphetamines Screen NEGATIVE NEGATIVE Urine Benzodiazepines Screen NEGATIVE NEGATIVE Urine Cocaine Screen NEGATIVE NEGATIVE Urine Cannabinoids Screen POSITIVE H NEGATIVE My Orders Orders - MALLORY,SORIN K DO Ed Iv/Invasive Line Start (06/28/22 00:51) Monitor-Rhythm Ecg Trace Only (06/28/22 00:51) Alcohol (06/28/22 00:51) Ammonia (06/28/22 00:51) Amylase (06/28/22 00:51) Cbc With Automated Diff (06/28/22 00:51) Comprehensive Metabolic Panel (06/28/22 00:51) Hs C Reactive Protein (06/28/22:51) Drug Screen Stat (Urine) (06/28/22 00:51) Lactic Acid Analyzer (06/28/22 00:51) Lipase (06/28/22 00:51) Magnesium (06/28/22:51) Protime With Inr (06/28/22:51) Partial Thromboplastin Time (06/28/22 00:51) Ua Culture If Indicated (06/28/22 00:51) Erythrocyte Sedimentation Rate (06/28/22 00:51) Covid 19 Inhouse Test (06/28/22 00:51) Isolation Central Supply Req (06/28/22 00:51) Ondansetron Injection (Zofran Injectio (06/28/22 01:00) Ekg Tracing (06/28/22 00:54) Catheter(Urinary) Insert & Ass 03,15 (06/28/22 01:17) O2 (06/28/22 01:17) Chest 1 View, Ap/Pa Only (06/28/22 01:17) Bnp Travis (06/28/22 01:17) Hepatitis Panel Acute (06/28/22 01:29) Hiv 1&2 Antibody (06/28/22 01:29) Medications Given in ED Current Medications Medications Dose Ordered Sig/Gaurang Route Start Time Stop Time Status Last Admin Dose Admin Ondansetron HCl 4 mg ONCE ONCE IVP 06/28/22 01:00 06/28/22 01:01 DC 06/28/22 01:29 4 MG Vital Signs/I&O Capillary Refill : ECG Initial ECG Impression Date: Jun 28, 2022 Initial ECG Impression Time: 01:07 Initial ECG Rate: 78 Initial ECG Rhythm: Normal Sinus Initial ECG Impression: Nonspecific Changes Diagnostic Imaging Comments CXR--RIGHT PLEURAL EFFUSION--PENDING RADIOLOGIST REVIEW Reviewed: Reviewed by Me Departure Impression Primary Impression: Ascites Additional Impressions: Alcohol intoxication in active alcoholic INABILITY TO CARE FOR SELF Thrombocytopenia Chronic liver disease Pleural effusion on right Departure-Patient Inst. Referrals: SELENA OATES MD (PCP/Family) Primary Care Physician SORIN TEJADA DO Jun 28, 2022 01:23
[2022-06-28 01:26] LABS: CLARITY,URINE CLEAR; COLOR,URINE ORANGE; GLUCOSE, URINE (UA) TRACE (NEGATIVE); KETONES,URINE NEGATIVE (NEGATIVE); LEUKOCYTE ESTERASE ,URINE NEGATIVE (NEGATIVE); NITRITE,URINE NEGATIVE (NEGATIVE); PROTEIN,URINE TRACE (NEGATIVE)
[2022-06-28 01:28] LABS: ALBUMIN 2.5 GM/DL (3.2-4.5); BILIRUBIN,TOTAL 1.9 MG/DL (0.1-1.0); CALCIUM 8.4 MG/DL (8.5-10.1); CREATININE SERUM 0.61 MG/DL (0.60-1.30); MAGNESIUM 1.9 MG/DL (1.6-2.4); POTASSIUM 3.7 MMOL/L (3.6-5.0); TOTAL PROTEIN 7.5 GM/DL (6.4-8.2)
[2022-06-28 01:33] LABS: BACTERIA,URINE TRACE /HPF; SQUAMOUS EPITHELIAL CELL,UR 0-2 /HPF
[2022-06-28 01:34] LABS: BILIRUBIN,URINE 2+ (NEGATIVE)
[2022-06-28 01:38] LABS: AMPHETAMINE SCREEN, URINE NEGATIVE (NEGATIVE); BARBITURATE SCREEN URINE NEGATIVE (NEGATIVE); BENZODIAZEPINES SCREEN URINE NEGATIVE (NEGATIVE); CANNABINOID SCREEN, URINE POSITIVE (NEGATIVE); COCAINE SCREEN URINE NEGATIVE (NEGATIVE); METHADONE STAT NEGATIVE (NEGATIVE); OPIATE SCREEN URINE NEGATIVE (NEGATIVE); OXYCODONE STAT NEGATIVE (NEGATIVE); PROPOXYPHENE STAT NEGATIVE (NEGATIVE); TRICYCLIC ANTIDEPRESSANTS SCRE NEGATIVE (NEGATIVE)
[2022-06-28 01:40] LABS: ERYTHROCYTE SEDIMENTATION RATE 91 MM/HR (0-15)
[2022-06-28 04:07] VITALS: BP 150/86
[2022-06-28] MEDS ORDERED: ANTACID SUSP 30 ML UDC (MYLANTA) PO PRN (05:30)
[2022-06-28] MEDS ORDERED: DIAZEPAM INJ 10 MG/2 ML (VALIUM) SYR IV PRN (05:30)
[2022-06-28] MEDS ORDERED: D5 1/2 NS 1000 ML IV SOLUTION 1,000 ML IV PRN (05:30)
[2022-06-28] MEDS ORDERED: 1/2 NS IV SOLUTION 1,000 ML IV PRN (05:30)
[2022-06-28] MEDS ORDERED: SENNA W/DOCUSATE (SENOKOT S) TABLET PO PRN (05:30)
[2022-06-28] MEDS ORDERED: ONDANSETRON 4 MG/2 ML (SDV) Z0FRAN IV PRN (05:30)
[2022-06-28] MEDS ORDERED: D5 1/2 NS W/KCL 20 MEQ/L 1,000 ML IV SCH (05:30)
[2022-06-28] MEDS ORDERED: ONDANSETRON 4 MG (ZOFRAN) ORAL DISSOLVE TAB SL PRN (05:30)
[2022-06-28] MEDS ORDERED: LORazepam 1 MG (ATIVAN) TAB PO PRN (05:30)
[2022-06-28 06:12] LABS: HEMATOCRIT 31 % (40-54); HEMOGLOBIN 10.3 g/dL (13.3-17.7); MEAN CORPUSCULAR HEMOGLOBIN 32 pg (25-34); MEAN CORPUSCULAR HGB CONC 34 g/dL (32-36); MEAN CORPUSCULAR VOLUME 95 fL (80-99)
[2022-06-28 06:14] LABS: BASOPHILS # (AUTO) 0.1 10^3/uL (0.0-0.1); BASOPHILS % (AUTO) 2 % (0-10); EOSINOPHILS # (AUTO) 0.1 10^3/uL (0.0-0.3); EOSINOPHILS % (AUTO) 3 % (0-10); LYMPHOCYTES # (AUTO) 0.7 10^3/uL (1.0-4.0); LYMPHOCYTES % (AUTO) 16 % (12-44); MEAN PLATELET VOLUME 8.6 fL (9.0-12.2); MONOCYTES # (AUTO) 0.7 10^3/uL (0.0-1.0); MONOCYTES % (AUTO) 14 % (0-12); NEUTROPHILS # (AUTO) 3.1 10^3/uL (1.8-7.8); NEUTROPHILS % (AUTO) 65 % (42-75); PLATELET COUNT 121 10^3/uL (130-400); WHITE BLOOD COUNT 4.7 10^3/uL (4.3-11.0)
[2022-06-28 06:25] LABS: CALCIUM 8.3 MG/DL (8.5-10.1); CREATININE SERUM 0.58 MG/DL (0.60-1.30); POTASSIUM 3.9 MMOL/L (3.6-5.0)
--- NOTE | 2022-06-28 06:34 | Consultation - Surgery ---
History of Present Illness History of Present Illness Patient Consulted On(stevan/time) 06/28/22 06:28 Date Seen by Provider: Jun 28, 2022 Time Seen by Provider: 06:28 History of Present Illness Consult requested by Dr. Samuel for right pleural effusion and ascites. Patient 41-year-old male who presents to the emergency department with increasing shortness of breath. Symptoms began yesterday. Patient having increased swelling of his abdomen. He has had have multiple paracentesis's before. He has not had one for quite some time. Patient has not seen liver specialist or followed up with his primary care provider since last time I seen him. Patient states that his car broke down and was unable to. Patient having abdominal discomfort due to distention. Nothing makes it better or worse that he knows of. When he does have it drained it does make it better though. Patient denies any nausea vomiting fever sweats chills or chest pain at this time. Allergies and Home Medications Allergies Coded Allergies: No Known Drug Allergies (Unverified , 12/07/21) Patient Home Medication List Home Medication List Reviewed: Yes Cefdinir (Cefdinir) 300 Mg Capsule, 300 MG PO BID Prescribed by: MATHEUS ZENG on 03/10/22 0930 Famotidine (Acid Solar Energy Systems Engineer (FAMOTIDINE)) 20 Mg Tablet, 20 MG PO BID Prescribed by: MATHEUS ZENG on 03/10/22 1646 Past Tiggtxc-Nfwbph-Lvxbor Hx Patient Social History Smoking Status: Former Smoker Type Used: Cigarettes Alcohol Use?: Yes Have you traveled recently?: No Surgeries History of Surgeries: Yes (Orchioplexy as child) Surgeries: Abdominal Respiratory History of Respiratory Disorde: Yes (O2 AT 2L/NC CONTINUOUSLY) Cardiovascular History of Cardiac Disorders: No Neurological History of Neurological Disord: No Genitourinary History of Genitourinary Disor: No Gastrointestinal History of Gastrointestinal Di: Yes (ASCITES) Gastrointestinal Disorders: Liver Disease/Jaundice, Cirrhosis Musculoskeletal History of Musculoskeletal Dis: No Endocrine History of Endocrine Disorders: Yes (OBESITY) HEENT History of HEENT Disorders: No Cancer History of Cancer: No Psychosocial History of Psychiatric Problem: Yes (ALCOHOLISM) Behavioral Health Disorders: Anxiety Integumentary History of Skin or Integumenta: Yes (Cyst excision from thigh) Skin/Integumentary Disorders: Recent Skin Changes Family Medical History Significant Family History: No Pertinent Family Hx Review of Systems-General Constitutional: No chills, No diaphoresis EENTM: No blurred vision, No double vision Respiratory: No cough; short of breath Cardiovascular: No chest pain, No palpitations Gastrointestinal: abdominal pain, other (ascites) Genitourinary: No decreased output, No discharge Musculoskeletal: No back pain, No joint pain Skin: No change in color, No change in hair/nails Psychiatric/Neurological: Denies Anxiety, Denies Depressed, Denies Emotional Problems All Other Systems Reviewed Negative Unless Noted: Yes (Negative excepted noted.) Physical Exam-General Problems Physical Exam Vital Signs Vital Signs - First Documented 06/28/22 00:52 Temp 36.5 Pulse 85 Resp 26 B/P (MAP) 150/82 (104) Pulse Ox 97 O2 Delivery Nasal Cannula O2 Flow Rate 2.50 Capillary Refill : Less Than 3 Seconds General Appearance: obese, other (unkempt) HEENT: PERRL/EOMI, normal ENT inspection Neck: non-tender, supple Respiratory: chest non-tender, no respiratory distress, no accessory muscle use Cardiovascular: regular rate, rhythm, no JVD Gastrointestinal: soft, distended (fluid wave) Rectal: deferred Back: no CVA tenderness, no vertebral tenderness Extremities: non-tender, swelling Neurologic/Psychiatric: alert, normal mood/affect, oriented x 3 Skin: normal color, warm/dry Lymphatic: no adenopathy Data Review Labs Laboratory Tests 06/28/22 00:58: SARS-CoV-2 RNA (RT-PCR) Not Detected 06/28/22 00:59: White Blood Count 4.7, Red Blood Count 3.38L, Hemoglobin 10.7L, Hematocrit 32L, Mean Corpuscular Volume 95, Mean Corpuscular Hemoglobin 32, Mean Corpuscular Hemoglobin Concent 33, Red Cell Distribution Width 16.8H, Platelet Count 120L, Mean Platelet Volume 8.8L, Immature Granulocyte % (Auto) 0, Neutrophils (%) (Auto) 63, Lymphocytes (%) (Auto) 17, Monocytes (%) (Auto) 14H, Eosinophils (%) (Auto) 4, Basophils (%) (Auto) 2, Neutrophils # (Auto) 3.0, Lymphocytes # (Auto) 0.8L, Monocytes # (Auto) 0.7, Eosinophils # (Auto) 0.2, Basophils # (Auto) 0.1, Immature Granulocyte # (Auto) 0.0, Percent Immature Platelet Fraction 0.7, Erythrocyte Sedimentation Rate 91H, Prothrombin Time 17.7H, INR Comment 1.4, Activated Partial Thromboplast Time 41H, Sodium Level 138, Potassium Level 3.7, Chloride Level 103, Carbon Dioxide Level 24, Anion Gap 11, Blood Urea Nitrogen 8, Creatinine 0.61, Estimat Glomerular Filtration Rate 123, BUN/Creatinine Ratio 13, Glucose Level 100, Lactic Acid Level 1.90, Calcium Level 8.4L, Corrected Calcium 9.6, Magnesium Level 1.9, Total Bilirubin 1.9H, Aspartate Amino Transf (AST/SGOT) 56H, Alanine Aminotransferase (ALT/SGPT) 20, Alkaline Phosphatase 92, Ammonia 61H, C-Reactive Protein High Sensitivity 10.97H, B-Type Natriuretic Peptide 72.3, Total Protein 7.5, Albumin 2.5L, Amylase Level 22L, Lipase 31, Serum Alcohol 93H 06/28/22 01:19: Urine Color ORANGE, Urine Clarity CLEAR, Urine pH 6.0, Urine Specific [place] >=1.030, Urine Protein TRACEH, Urine Glucose (UA) TRACEH, Urine Ketones NEGATIVE, Urine Nitrite NEGATIVE, Urine Bilirubin 2+H, Urine Urobilinogen >=8.0, Urine Leukocyte Esterase NEGATIVE, Urine RBC (Auto) NEGATIVE, Urine RBC NONE, Urine WBC NONE, Urine Squamous Epithelial Cells 0-2, Urine Crystals NONE, Urine Bacteria TRACE, Urine Casts NONE, Urine Mucus SMALLH, Urine Culture Indicated NO, Urine Opiates Screen NEGATIVE, Urine Oxycodone Screen NEGATIVE, Urine Methadone Screen NEGATIVE, Urine Propoxyphene Screen NEGATIVE, Urine Barbiturates Screen NEGATIVE, Ur Tricyclic Antidepressants Screen NEGATIVE, Ur ine Phencyclidine Screen NEGATIVE, Urine Amphetamines Screen NEGATIVE, Urine Methamphetamines Screen NEGATIVE, Urine Benzodiazepines Screen NEGATIVE, Urine Cocaine Screen NEGATIVE, Urine Cannabinoids Screen POSITIVEH 06/28/22 05:39: White Blood Count 4.7, Red Blood Count 3.23L, Hemoglobin 10.3L, Hematocrit 31L, Mean Corpuscular Volume 95, Mean Corpuscular Hemoglobin 32, Mean Corpuscular Hemoglobin Concent 34, Red Cell Distribution Width 16.8H, Platelet Count 121L, Mean Platelet Volume 8.6L, Immature Granulocyte % (Auto) 0, Neutrophils (%) (Auto) 65, Lymphocytes (%) (Auto) 16, Monocytes (%) (Auto) 14H, Eosinophils (%) (Auto) 3, Basophils (%) (Auto) 2, Neutrophils # (Auto) 3.1, Lymphocytes # (Auto) 0.7L, Monocytes # (Auto) 0.7, Eosinophils # (Auto) 0.1, Basophils # (Auto) 0.1, Immature Granulocyte # (Auto) 0.0, Percent Immature Platelet Fraction 0.6, Sodium Level 137, Potassium Level 3.9, Chloride Level 104, Carbon Dioxide Level 25, Anion Gap 8, Blood Urea Nitrogen 7, Creatinine 0.58L, Estimat Glomerular Filtration Rate 125, BUN/Creatinine Ratio 12, Glucose Level 97, Calcium Level 8.3L Assessment/Plan Assessment/Plan Assessment/Plan symptomatic ascites right pleural effusion on chest x ray-small shortness of breath will plan u/s guided paracentesis today this should relieve his symptoms discussed need for follow up with PCP and referral for hepatology patient understands risks and benfits of paracentesis and will do later today JUSTA KNIGHT DO Jun 28, 2022 06:34
[2022-06-28 07:46] VITALS: BP 131/77
--- NOTE | 2022-06-28 08:11 | Diagnostic Imaging Report ---
EXAMINATION: Chest 1 view HISTORY: Short of breath COMPARISON: 03/10/2022 FINDINGS: There is a small right pleural effusion with overlying atelectasis or pneumonia. No pneumothorax. Heart size is normal. IMPRESSION: 1. Stable small right pleural effusion with overlying atelectasis or pneumonia. Dictated by: Dictated on workstation # [id number]
[2022-06-28] MEDS: PANTOPRAZOLE 40 MG (PROTONIX) VIAL IV SCH (08:30)
[2022-06-28] MEDS ORDERED: THIAMINE INJECTION 100 MG, FOLIC ACID INJECTION 1 MG, MAGNESIUM SULFATE 2 GM, VITAMIN M... IV SCH ×5 (09:00)
--- NOTE | 2022-06-28 11:41 | Short Stay Summary-Hospitalist ---
PARTHA PACHECO 06/28/22 1141: History of Present Illness HPI/Chief Complaint CC: Headache, Ascited HPI: 41yo Male presented to the ED with a complaint of headache and suspected ascites. Patient has a PMH of alcohol abuse, chronic liver failure, and has had paracentesis completed three times due to recurrent ascites. Patient claims his alcohol consumption is 1L a day of hard liquor, alcohol level was 93 upon admission. Due to this the patient was started on CIWA protocol. Surgery was consulted. Source: patient, EMS notes reviewed Date Seen 06/28/22 Time Seen by a Provider: 12:00 Attending Physician Vy Camarillo MD PCP Admitting Physician: Evette Harris DO Attending Physician: Evette Harris DO Referring Physician Date of Admission Jun 28, 2022 at 01:45 Home Medications & Allergies Home Medications Reviewed patient Home Medication Reconciliation performed by pharmacy medication reconciliations coil repair technician and/or nursing. Patients Allergies have been reviewed. Allergies Allergies Coded Allergies No Known Drug Allergies (Unverified12/07/21) Past Medical/Social/Family Hx Patient Social History Tobacco Use?: No Tobacco type used: Cigarettes Smoking Status: Former Smoker Smokeless Tobacco Frequency: Never a User Use of E-Cig and/or Vaping dev: No E-Cig and/or Vaping Freq: Former User Substance use?: No DENIES SUBSTANCE ABUSE Alcohol Use?: Yes Alcohol type: Hard Liquor Additional alcohol type: VOCKA Alcohol Frequency: Daily Pt stated abuse/neglect: No Immunizations Up To Date First/Initial COVID19 Vaccinat: ? Current Status Advance Directives: No Communicates: Verbally Primary Language: Honduran Preferred Spoken Language: Honduran Is interpretation needed?: No Past Medical History Alcohol abuse Chronic liver failure Recurrent ascites Family Medical History Family Hx: Patient reported no family members have chronic medical conditions Review of Systems Respiratory: short of breath Cardiovascular: other (Tightness in chest) Gastrointestinal: no symptoms reported Genitourinary: pain (Catheter site) Physical Exam Physical Exam Vital Signs Vital Signs - First Documented 06/28/22 00:52 Temp 36.5 Pulse 85 Resp 26 B/P (MAP) 150/82 (104) Pulse Ox 97 O2 Delivery Nasal Cannula O2 Flow Rate 2.50 Capillary Refill : Less Than 3 Seconds Height, Weight, BMI Height: '" Weight: lbs. oz. kg; 49.21 BMI Method: General Appearance: No Apparent Distress, Other (OBESE, WITH MASSIVE ABDOMEN WITH ASCITES. PT IS EXTREMELY MALODOROUS--REEKS OF OLD URINE AND FECES; PT IS EXTREMELY UNKEMPT--FEET AND LEGS AND LOWER ABODMEN ARE COVERED IN OLD DRIED URINE, AND FEET ARE BAREFOOT AND FILTHY AND COVERED IN URINE AND OLD DRIED FECES. TOENAILS EXTREMLY LONG. ) Respiratory: Normal Breath Sounds, No Accessory Muscle Use, No Respiratory Distress Cardiovascular: Regular Rate, Rhythm, No Edema, No Gallop, No JVD, No Murmur Gastrointestinal: Normal Bowel Sounds, Non Tender, Soft, Other (ABDOMEN IS MA SSIVE WITH ASCITES. MASSIVE PANNUS WITH CHRONIC SKIN CHANGES TO LOWER ABDOMEN, AND LOWER ABDOMEN AND GENITAL AREA COVERED WITH DRIED URINE. ) Extremity: Other (LEGS WITH 2+ EDEMA, EXTENSIVE CHRONIC VENOUS STASIS CHANGES BILATERALLY. NON-TENDER) Neurologic/Psychiatric: Alert, Oriented x3, Other (FLAT AFFECT) Skin: Jaundice Results Results/Procedures Labs Laboratory Tests 06/28/22 00:59 06/28/22 05:39 Patient resulted labs reviewed. Short Stay Diagnosis Conclusion Plan [facility] protocol Surgery consulted Paracentesis planned for 06/28/2022 EVETTE HARRIS DO 06/28/22 2213: History of Present Illness HPI/Chief Complaint CC: Abdominal bloating HPI: This is a 41 yr old male. He has a history of alcoholism. Pt refuses to see a liver specialist. He presented with abdominal distension. He was found to have severe ascites requiring paracentesis. It will be performed by Dr. Mcdaniels at 1300. He does actively drink and he is on alcohol withdrawal protocol. Source: patient Review of Systems Constitutional: see HPI Physical Exam Physical Exam General Appearance: No Apparent Distress, WD/WN, Chronically ill Respiratory: Lungs Clear, Normal Breath Sounds Gastrointestinal: Other (ABDOMEN IS MASSIVE WITH ASCITES. MASSIVE PANNUS WITH CHRONIC SKIN CHANGES TO LOWER ABDOMEN, AND LOWER ABDOMEN AND GENITAL AREA COVERED WITH DRIED URINE. ) Short Stay Diagnosis Discharge Diagnosis-Short Stay Admission Diagnosis Ascites Liver failure ETOHism Final Discharge Diagnosis Ascites Liver failure ETOHism Conclusion Plan Paracentesis Supervisory-Addendum Brief Verification & Attestation Participated in pt care: history, MDM, physical Personally performed: exam, history, MDM, supervision of care Care discussed with: Medical Student Procedures: n/a Results interpretation: Verified all documentation Verification and Attestation of Medical Student E/M Service A medical student performed and documented this service in my presence. I reviewed and verified all information documented by the medical student and made modifications to such information, when appropriate. I personally performed the physical exam and medical decision making. Evette Harris, Jun 28, 2022,22:13 PARTHA PACHECO Jun 28, 2022 11:41 EVETTE HARRIS DO Jun 28, 2022 22:13
[2022-06-28 11:43] VITALS: BP 127/74
[2022-06-28] MEDS ORDERED: LIDOCAINE 1% INJ 20 ML VIAL INJ NR (11:45)
[2022-06-28] MEDS: ALBUMIN 25% 25 GM/100 ML 200 ML IV NR ×2 (16:15→20:10)
[2022-06-28 16:18] VITALS: BP 130/75
--- NOTE | 2022-06-28 16:40 | Progress Note-Post Operative ---
Post-Operative Progess Note Surgeon (s)/Digital Art Director (s) Surgeon JUSTA MCDANIELS DO Digital Art Director: na Pre-Operative Diagnosis symptomatic ascites Post-Operative Diagnosis same Procedure & Operative Findings Date of Procedure 06/28/22 Procedure Performed/Findings DATE OF SERVICE: 06/28/22 PREOPERATIVE DIAGNOSIS: Symptomatic abdominal ascites. POSTOPERATIVE DIAGNOSIS: Symptomatic abdominal ascites. PROCEDURE: Ultrasound-guided paracentesis. SURGEON: Justa Mcdaniels DO ANESTHESIA: Local. ESTIMATED BLOOD LOSS: Scant. COMPLICATIONS: None. INDICATIONS: The patient is a 41 male with recurrent symptomatic ascites .The patient understands risks and benefits of procedure and wished to proceed. Consent was signed and on the chart. DESCRIPTION OF PROCEDURE: The patient was prepped and draped in sterile fashion after ultrasound was used to isolate the best pocket for drainage. Local anesthetic was infiltrated. An 11 blade scalpel was then used to make a small incision. The [id number] needle and catheter were then advanced through the abdominal wall until straw-colored fluid was withdrawn. The catheter was advanced, and the needle was removed. The 10,975 mL of straw-colored fluid was withdrawn. The catheter was then removed, and a sterile bandage was applied. The patient tolerated procedure well without any complications. Anesthesia Type local Estimated Blood Loss Estimated blood loss (mL): scant Specimens/Packing Specimens Removed JUSTA Watkins DO Jun 28, 2022 16:40
[2022-06-28 20:08] VITALS: BP 123/71
[2022-06-28 21:23] LABS: HEPATITIS C ANTIBODY C Non-Reactive (Non-Reactive)
[2022-06-28] MEDS: hydrOXYzine (ATARAX) 10 MG TAB PO PRN (22:24)
[2022-06-28 23:17] VITALS: BP 118/65
[2022-06-29 04:04] VITALS: BP 122/75
[2022-06-29] MEDS: MULTIVIT W/MINERALS TAB (THERAGRAN M) PO SCH (05:43)
[2022-06-29 07:19] VITALS: BP 118/66
--- NOTE | 2022-06-29 09:17 | Progress Note - Surgery ---
MILVIA JESUS 06/29/22 0917: Subjective Date Seen by a Provider: Jun 29, 2022 Time Seen by a Provider: 08:00 Subjective/Events-last exam Pt states he is breathing better following yesterdays paracentesis. He has been able to eat and drink with minor bloating afterwards. He is concerned about the blood in his urine which he first noticed after being catheterized. Denies any difficulty breathing, nausea/vomiting or pain. Focused Exam Lactate Level 06/28/22 00:59: Lactic Acid Level 1.90 Objective Exam Vital Signs Date Time Temp Pulse Resp B/P (MAP) Pulse Ox O2 Delivery O2 Flow Rate FiO2 06/29/22 07:19 36.5 73 18 118/66 (83) 98 Nasal Cannula 2.00 06/29/22 07:00 73 06/29/22 04:04 37.0 79 18 122/75 (91) 95 Nasal Cannula 2.00 06/29/22 01:00 86 06/28/22 23:17 37.2 82 18 118/65 (82) 97 Nasal Cannula 2.00 06/28/22 20:15 Nasal Cannula 2.00 06/28/22 20:08 36.9 75 18 123/71 (88) 97 Nasal Cannula 2.00 06/28/22 19:00 80 06/28/22 16:18 36.5 68 20 130/75 (93) 98 Nasal Cannula 2.00 06/28/22 14:52 Nasal Cannula 2.00 06/28/22 12:16 96 06/28/22 11:43 36.6 85 17 127/74 (91) 96 Nasal Cannula 2.00 I & O 06/29/22 07:00 Intake Total 2021 ml Output Total 2525 ml Balance -503 ml Capillary Refill : Less Than 3 Seconds General Appearance: No Apparent Distress, Chronically ill, Obese HEENT: PERRL/EOMI Respiratory: Lungs Clear, Normal Breath Sounds Cardiovascular: Regular Rate, Rhythm, No Edema, No Gallop, No JVD, No Murmur Gastrointestinal: soft, distended Extremity: Other (LEGS WITH 2+ EDEMA, EXTENSIVE CHRONIC VENOUS STASIS CHANGES BILATERALLY. NON-TENDER) Neurologic/Psychiatric: Alert, Oriented x3 Skin: Warm/Dry Assessment/Plan Assessment/Plan Assessment/Plan symptomatic ascites right pleural effusion on chest x ray-small Hematuria shortness of breath Patient is doing well following paracentesis yesterday. Will follow up with him as needed. FRANCISCO JAVIER SHEPHERD DO 06/29/22 1445: Subjective Time Seen by a Provider: 11:19 Subjective/Events-last exam Pt seen and examined, no new complaints. States breathing is better and he can move around more, but state abdomen is still very distended. Review of Systems General: Malaise Pulmonary: No Dyspnea, No Cough Cardiovascular: No: Chest Pain, Palpitations Gastrointestinal: Other (distention) Objective Exam General Appearance: No Apparent Distress, Chronically ill, Obese HEENT: PERRL/EOMI Respiratory: Lungs Clear, Normal Breath Sounds Cardiovascular: Regular Rate, Rhythm, No Murmur Gastrointestinal: soft, distended Extremity: Other (LEGS WITH 2+ EDEMA, EXTENSIVE CHRONIC VENOUS STASIS CHANGES BILATERALLY. NON-TENDER) Neurologic/Psychiatric: Alert, Oriented x3 Assessment/Plan Assessment/Plan Assessment/Plan symptomatic ascites right pleural effusion on chest x ray-small Hematuria shortness of breath Patient is doing better following paracentesis yesterday. I asked about him seeing Liver specialist and he said he is setting that up. Will monitor him, most likely won't need another emergent paracentesis but his abdomen looks like there is plenty more fluid to take off. Supervisory-Addendum Brief Verification & Attestation Participated in pt care: history, MDM, physical Personally performed: exam, history, MDM, supervision of care Care discussed with: Medical Student Procedures: n/a Verification and Attestation of Medical Student E/M Service A medical student performed and documented this service. I then reviewed and verified all information documented by the medical student and made modifications to such information, when appropriate. I personally performed a physical exam, medical decision making and then discussed any differences between the notes and made revisions as necessary to create one note. Francisco Javier Shepherd , 06/29/22 , 14:45 MILVIA JESUS Jun 29, 2022 09:17 FRANCISCO JAVIER SHEPHERD DO Jun 29, 2022 14:45
[2022-06-29] MEDS: PANTOPRAZOLE 40 MG (PROTONIX) VIAL IV SCH (09:58)
--- NOTE | 2022-06-29 11:22 | Progress Note - Hospitalist ---
Subjective HPI/CC On Admission Date Seen by Provider: Jun 29, 2022 Time Seen by Provider: 07:30 CC: Abdominal bloating HPI: This is a 41 yr old male. He has a history of alcoholism. Pt refuses to see a liver specialist. He presented with abdominal distension. He was found to have severe ascites requiring paracentesis. It will be performed by Dr. Mcdaniels at 1300. He does actively drink and he is on alcohol withdrawal protocol. Subjective/Events-last exam Patient feeling less distended post paracentesis reports new onset gross hematuria denying dysuria with Clark catheter that sounds as though there may have been a little issue with difficulty in passing per patient. He has not had previous problems with gross hematuria and UA prior revealed no evidence for red cells and no evidence for infection. Focused Exam Lactate Level 06/28/22 00:59: Lactic Acid Level 1.90 Objective Exam Vital Signs Vital Signs Date Time Temp Pulse Resp B/P (MAP) Pulse Ox O2 Delivery O2 Flow Rate FiO2 06/29/22 08:00 98 Nasal Cannula 2.00 06/29/22 07:19 36.5 73 18 118/66 (83) Capillary Refill : Less Than 3 Seconds General Appearance: No Apparent Distress, Chronically ill Respiratory: Chest Non Tender, Lungs Clear, Normal Breath Sounds, No Accessory Muscle Use, No Respiratory Distress Cardiovascular: Regular Rate, Rhythm, No Edema, No Gallop, No JVD, No Murmur, Normal Peripheral Pulses Gastrointestinal: Other (Massive abdominal distention presumably from ascites bowel sounds positive.) Results/Procedures Lab Patient resulted labs reviewed. Assessment/Plan Assessment and Plan Assess & Plan/Chief Complaint AscitesDoing better post paracentesis will resume Aldactone and Lasix today. Will remove Clark catheter little later on today and ensure patient is able to void with consideration for discharge in the morning. Liver failure ETOHism Final Discharge Diagnosis Ascites Liver failure ETOHism JANNETH OSORIO MD Jun 29, 2022 11:22
[2022-06-29] MEDS ORDERED: SPIRONOLACTONE 25 MG (ALDACTONE) TAB PO NR (11:30)
[2022-06-29] MEDS ORDERED: FUROSEMIDE 40 MG/4 ML INJ (LASIX) IVP NR (11:30)
[2022-06-29 11:35] VITALS: BP 130/69
[2022-06-29 15:30] VITALS: BP 120/73
[2022-06-29 19:39] VITALS: BP 114/57
[2022-06-29] MEDS: SPIRONOLACTONE 25 MG (ALDACTONE) TAB PO SCH (20:40)
[2022-06-29] MEDS: hydrOXYzine (ATARAX) 10 MG TAB PO PRN (22:04)
[2022-06-30 00:10] VITALS: BP 123/76
[2022-06-30 04:11] VITALS: BP 122/77
[2022-06-30] MEDS: MULTIVIT W/MINERALS TAB (THERAGRAN M) PO SCH (06:20)
[2022-06-30 07:25] VITALS: BP 125/70
[2022-06-30] MEDS ORDERED: FUROSEMIDE 40 MG/4 ML INJ (LASIX) IVP SCH (09:00)
--- NOTE | 2022-06-30 09:26 | Progress Note - Surgery ---
MILVIA JESUS 06/30/22 0926: Subjective Date Seen by a Provider: Jun 30, 2022 Time Seen by a Provider: 07:55 Subjective/Events-last exam Pt reports feeling well this morning. He passed alot of gas last night and had a bowel movement which made him feel less bloated. He is having no SOA, nausea/vo miting or abdominal pain. Denies any sweats/chills. Review of Systems General: No Chills, No Night Sweats Pulmonary: No Dyspnea Cardiovascular: No: Chest Pain Gastrointestinal: No: Nausea, Vomiting, Abdominal Pain Focused Exam Lactate Level 06/28/22 00:59: Lactic Acid Level 1.90 Objective Exam Vital Signs Date Time Temp Pulse Resp B/P (MAP) Pulse Ox O2 Delivery O2 Flow Rate FiO2 06/30/22 07:25 36.4 71 18 125/70 (88) 96 Nasal Cannula 2.00 06/30/22 07:00 75 06/30/22 04:11 36.6 75 16 122/77 (92) 97 Nasal Cannula 2.00 06/30/22 01:00 73 06/30/22 00:10 36.8 79 16 123/76 (92) 98 Nasal Cannula 2.00 06/29/22 20:40 Nasal Cannula 2.00 06/29/22 19:39 36.9 75 18 114/57 (76) 97 Nasal Cannula 2.00 06/29/22 19:24 Nasal Cannula 2.00 06/29/22 19:00 72 06/29/22 15:30 36.6 79 18 120/73 (89) 99 Nasal Cannula 2.00 06/29/22 12:36 74 06/29/22 11:35 36.5 74 18 130/69 (89) 96 Nasal Cannula 2.00 I & O 06/30/22 07:00 Intake Total 1790 ml Output Total 625 ml Balance 1165 ml Capillary Refill : Less Than 3 Seconds General Appearance: No Apparent Distress, Chronically ill, Obese HEENT: PERRL/EOMI Respiratory: Lungs Clear, Normal Breath Sounds Cardiovascular: Regular Rate, Rhythm, No Murmur Gastrointestinal: soft, distended Extremity: Other (LEGS WITH 2+ EDEMA, EXTENSIVE CHRONIC VENOUS STASIS CHANGES BILATERALLY. NON-TENDER) Neurologic/Psychiatric: Alert, Oriented x3 Skin: Warm/Dry Assessment/Plan Assessment/Plan Assessment/Plan symptomatic ascites right pleural effusion on chest x ray-small Hematuria shortness of breath Patient is continuing to improve following paracentesis on 06/28. I asked about him seeing Liver specialist and he said he is setting that up. Will monitor him, most likely won't need another emergent paracentesis but his abdomen looks like there is plenty more fluid to take off. He is interesting in setting up an outpatient appt in a few weeks to reevaluate his need for paracentesis. FRANCISCO JAVIER SHEPHERD DO 06/30/22 1405: Subjective Time Seen by a Provider: 12:41 Subjective/Events-last exam Pt seen and examined, he is getting ready to go home. States he is doing much better than before. Denies abdominal pain. Review of Systems General: No Chills, No Night Sweats Pulmonary: No Dyspnea Cardiovascular: No: Chest Pain Gastrointestinal: No: Nausea, Vomiting, Abdominal Pain Objective Exam General Appearance: No Apparent Distress, Chronically ill, Obese Respiratory: Lungs Clear, Normal Breath Sounds, No Accessory Muscle Use, No Respiratory Distress Cardiovascular: Regular Rate, Rhythm, No Murmur Gastrointestinal: soft, distended Neurologic/Psychiatric: Alert, Oriented x3 Assessment/Plan Assessment/Plan Assessment/Plan symptomatic ascites right pleural effusion on chest x ray-small Hematuria shortness of breath Patient is continuing to improve following paracentesis on 06/28. I asked about him seeing Liver specialist and he said he is setting that up. Will monitor him, most likely won't need another emergent paracentesis but his abdomen looks like there is plenty more fluid to take off.He is interesting in setting up an outpatient appt in a few weeks to reevaluate his need for paracentesis. Supervisory-Addendum Brief Verification & Attestation Participated in pt care: history, MDM, physical Personally performed: exam, history, MDM, supervision of care Care discussed with: Medical Student Procedures: n/a Verification and Attestation of Medical Student E/M Service A medical student performed and documented this service. I then reviewed and verified all information documented by the medical student and made modifications to such information, when appropriate. I personally performed a physical exam, medical decision making and then discussed any differences between the notes and made revisions as necessary to create one note. Francisco Javier Shepherd , 06/30/22 , 14:05 MILVIA JESUS Jun 30, 2022 09:26 FRANCISCO JAVIER SHEPHERD DO Jun 30, 2022 14:05
[2022-06-30] MEDS: SPIRONOLACTONE 25 MG (ALDACTONE) TAB PO SCH (10:26)
[2022-06-30] MEDS: PANTOPRAZOLE 40 MG (PROTONIX) VIAL IV SCH (10:26)
[2022-06-30] MEDS ORDERED: HYDR-700 PO (11:41)
[2022-06-30] MEDS ORDERED: FURO40TA4 PO (11:41)
[2022-06-30] MEDS ORDERED: SPIR100T PO (11:41)
--- NOTE | 2022-06-30 11:47 | Discharge Summary ---
Diagnosis/Chief Complaint Date of Admission Jun 28, 2022 at 01:45 Date of Discharge Discharge Date: Jun 30, 2022 Admission Diagnosis Ascites Liver failure ETOHism Primary Care Vy Camarillo MD Discharge Summary Discharge Physical Exam Allergies: Coded Allergies: No Known Drug Allergies (Unverified , 12/07/21) Vitals & I&Os Vital Signs Date Time Temp Pulse Resp B/P (MAP) Pulse Ox O2 Delivery O2 Flow Rate FiO2 06/30/22 08:45 96 Nasal Cannula 2.00 06/30/22 07:25 36.4 71 18 125/70 (88) General Appearance: No Apparent Distress, Chronically ill Cardiovascular: Regular Rate, Rhythm, No Edema, No Gallop, No JVD, No Murmur Gastrointestinal: Other (Abdomen soft nontender significant distention) Neurologic/Psychiatric: Alert, Oriented x3 Hospital Course Was the Problem List Reviewed?: Yes PT ARRIVES VIA POV FROM HOME--LIVES BY HIMSELF IN [place] PT WITH MULTIPLE COMPLAINTS STATES SYMPTOMS BEGAN AROUND 1700 THIS EVENING C/O HEADACHE--IS GONE NOW C/O SHORTNESS OF BREATH--PT WITH CHRONIC DYSPNEA, AND WEARS HOME O2 AT 2L/NC CONTINUOUSLY NO CHEST PAIN C/O NAUSEA, NO VOMITING. NORMAL BM TODAY NO PAIN OR BURNING ON URINATION NO KNOWN FEVER/SWEATS/CHILLS NO FALLS OR INJURIES PT WITH CHRONIC LIVER FAILURE AND ASCITES HAS HAD PARACENTESIS X 3--TWICE AT [place] AND ONCE HERE--LAST TIME WAS 3-4 MONTHS AGO, PER PT NO ABDOMINAL PAIN PT DOES NOT KNOW IF HE HAS HEPATITIS PT STATES HE HAS NOT SEEN A LIVER SPECIALIST PT WITH LONGSTANDING ALCOHOL ABUSE--UP TO A LITER TODAY AT TIMES. STATES HE HAS ONLY HAD 1/2 PINT OF HARD LIQUOR TODAY. 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 He reported that he is mandaeism about taking 100 mg of spironolactone and 40 mg of Lasix each morning so this dose was increased to 100 twice daily and 40 twice daily respectively. Discussed that if he did not quit drinking his ascites would remain refractory with a much more rapid decline in his health and quality of life. His weight was down 10 kg on the day of his discharge to 136.8kg. patient voiced no complaints stated he felt he was ready for discharge and needed take care of his dog. He was encouraged to see Dr. Camarillo in 1 to 2 weeks at which time he will need a basic metabolic panel for electrolyte and renal function monitoring. Labs (last 24 hrs) Patient resulted labs reviewed. Discussion & Recommendations Discharge Planning: >30 minutes discharge planning Discharge Home Medications: Active Scripts Active Hydroxyzine HCl 25 Mg Tablet 25 Mg PO Q6H 30 Days Aldactone (Spironolactone) 100 Mg Tablet 100 Mg PO BID 30 Days Furosemide 40 Mg Tablet 40 Mg PO BID 30 Days Acid Durability Engineer (FAMOTIDINE) (Famotidine) 20 Mg Tablet 20 Mg PO BID Cefdinir 300 Mg Capsule 300 Mg PO BID Instructions to patient/family Please see electronic discharge instructions given to patient. JANNETH OSORIO MD Jun 30, 2022 11:47
[2022-06-30 12:02] VITALS: BP 125/70
[2022-06-30 15:30] VITALS: BP 136/78
--- NOTE | 2022-07-01 12:53 | Diagnostic Imaging Report ---
INDICATION: Ascites. All four quadrants of the abdomen were evaluated. There is large abdominal ascites present in all four quadrants. Right lower quadrant was marked for Dr. Mcdaniels for performance of paracentesis. IMPRESSION: Large abdominal ascites. Dictated by: Dictated on workstation # [id number]
== END 2022-06-30 19:11 | disposition home or self-care (01) | DRG 433 ==
LOC: EDUNIT# 00:46 → ER 00:47 → 4TH 01:45
PROVIDERS: ADMIT Internal Medicine; ATTEND Internal Medicine
PROC: 0W9G3ZZ Drainage of Peritoneal Cavity, Percutaneous Approach (ICD-10-PCS; principal; 2022-06-28)
DX: K70.31 Alcoholic cirrhosis of liver with ascites (principal); Z68.42 Body mass index [BMI] 45.0-49.9, adult; J90 Pleural effusion, not elsewhere classified; F10.229 Alcohol dependence with intoxication, unspecified; Y90.4 Blood alcohol level of 80-99 mg/100 ml; Z99.81 Dependence on supplemental oxygen; R32 Unspecified urinary incontinence; Z20.822 Contact with and (suspected) exposure to COVID-19; F41.9 Anxiety disorder, unspecified; E66.9 Obesity, unspecified; I87.8 Other specified disorders of veins; D69.6 Thrombocytopenia, unspecified; R31.0 Gross hematuria
CPT/HCPCS: 36415; 51702; 71045; 76942; 80048; 80053; 80074; 80306; 80320; 81000; 82140; 82150; 83605; 83690; 83735; 83880; 85025; 85610; 85652; 85730; 86141; 87389; 87636; 93005; 93041; 94668

== ENCOUNTER 2022-09-03 01:41 | Observation (INO) | payer SELFPAY ==
[2022-09-03] VITALS (8 sets, daily range): BP systolic 101–139; BP diastolic 46–92
[~2022-09-03] VITALS: Ht 172.7 cm; Wt 166.9 kg
[~2022-09-03 01:41] MED LIST changes: +FURO40TA4 PO; +HYDR-700 PO; +SPIR100T PO
[2022-09-03 01:55] LABS: EOSINOPHILS # (AUTO) 0.1 10^3/uL (0.0-0.3); EOSINOPHILS % (AUTO) 1 % (0-10); HEMOGLOBIN 11.4 g/dL (13.3-17.7); MEAN PLATELET VOLUME 8.4 fL (9.0-12.2); NEUTROPHILS # (AUTO) 6.6 10^3/uL (1.8-7.8)
[2022-09-03 01:56] LABS: BASOPHILS # (AUTO) 0.1 10^3/uL (0.0-0.1); BASOPHILS % (AUTO) 1 % (0-10); HEMATOCRIT 34 % (40-54); LYMPHOCYTES # (AUTO) 0.8 10^3/uL (1.0-4.0); LYMPHOCYTES % (AUTO) 10 % (12-44); MEAN CORPUSCULAR HEMOGLOBIN 32 pg (25-34); MEAN CORPUSCULAR HGB CONC 33 g/dL (32-36); MEAN CORPUSCULAR VOLUME 95 fL (80-99); MONOCYTES # (AUTO) 0.7 10^3/uL (0.0-1.0); MONOCYTES % (AUTO) 8 % (0-12); NEUTROPHILS % (AUTO) 80 % (42-75); PLATELET COUNT 123 10^3/uL (130-400); WHITE BLOOD COUNT 8.2 10^3/uL (4.3-11.0)
--- NOTE | 2022-09-03 01:58 | ED General ---
General Chief Complaint: Abdominal/GI Problems Stated Complaint: ILLNESS Source of Information: Patient, EMS Exam Limitations: No Limitations History of Present Illness Date Seen by Provider: Sep 03, 2022 Time Seen by Provider: 01:42 Initial Comments 42-year-old male with past medical history of liver failure secondary to alcohol use coming in via EMS from home due to feeling short of breath. He had a large- volume paracentesis done roughly a month ago by Dr. Mcdaniels. He states the fluid really increased over the weekend and now he feels very tight. He denies any real abdominal pain with it, but he does endorse that he has a more difficult time breathing. He is on 3 L oxygen at baseline. Denies any fever, chest pain, focal weakness or numbness, rash, or any other concerns. Allergies and Home Medications Allergies Coded Allergies: No Known Drug Allergies (Unverified , 12/07/21) Patient Home Medication List Home Medication List Reviewed: Yes Furosemide (Furosemide) 40 Mg Tablet, 40 MG PO BID Prescribed by: JANNETH OSORIO on 06/30/22 1141 Hydroxyzine HCl (Hydroxyzine HCl) 25 Mg Tablet, 25 MG PO Q6H Prescribed by: JANNETH OSORIO on 06/30/22 1141 Spironolactone (Aldactone) 100 Mg Tablet, 100 MG PO BID Prescribed by: JANNETH OSORIO on 06/30/22 1141 Review of Systems Review of Systems Constitutional: No fever EENTM: no symptoms reported Respiratory: see HPI Cardiovascular: no symptoms reported Gastrointestinal: see HPI Genitourinary: no symptoms reported Musculoskeletal: no symptoms reported Skin: no symptoms reported Psychiatric/Neurological: No Symptoms Reported Hematologic/Lymphatic: No Symptoms Reported Immunological/Allergic: no symptoms reported All Other Systems Reviewed Negative Unless Noted: Yes Past [id number] Hx Patient Social History Tobacco Use?: No Alcohol Use?: Yes Immunizations Up To Date First/Initial COVID19 Vaccinat: ? Past Medical History Surgery/Hospitalization HX: paracentesis x 3 Surgeries: Yes (Orchioplexy as child) Abdominal Respiratory: Yes (O2 AT 2L/NC CONTINUOUSLY) Cardiac: No Neurological: No Genitourinary: No Gastrointestinal: Yes (ASCITES) Liver Disease/Jaundice, Cirrhosis Musculoskeletal: No Endocrine: Yes (OBESITY) HEENT: No Cancer: No Psychosocial: Yes (ALCOHOLISM) Anxiety Integumentary: Yes (Cyst excision from thigh) Recent Skin Changes Family Medical History No Pertinent Family Hx Patient reported no family members have chronic medical conditions Physical Exam Vital Signs Vital Signs - First Documented 09/03/22 01:41 Temp 36.8 Pulse 100 Resp 24 B/P (MAP) 139/92 (108) Pulse Ox 99 Capillary Refill : Height, Weight, BMI Height: '" Weight: lbs. oz. kg; 45.83 BMI Method: General Appearance: No Apparent Distress, WD/WN Eyes: Bilateral Eye Normal Inspection HEENT: PERRL/EOMI, Normal ENT Inspection, Pharynx Normal Neck: Full Range of Motion, Normal Inspection, Non Tender, Supple Respiratory: Chest Non Tender, No Accessory Muscle Use, No Respiratory Distress, Crackles Cardiovascular: Regular Rate, Rhythm, Normal Peripheral Pulses, Other (Lower extremity edema) Gastrointestinal: Normal Bowel Sounds, Non Tender, Other (Tense abdomen) Back: Normal Inspection, No CVA Tenderness Extremity: Normal Capillary Refill, Non Tender, No Calf Tenderness, Pedal Edema Neurologic/Psychiatric: Alert, Oriented x3, No Motor/Sensory Deficits, Normal Mood/Affect Skin: Normal Color, Warm/Dry Lymphatic: No Adenopathy Progress/Results/Core Measures Suspected Sepsis SIRS Temperature: Pulse: Respiratory Rate: Laboratory Tests 09/03/22 01:47: White Blood Count 8.2 Blood Pressure / Mean: Laboratory Tests 09/03/22 01:47: Creatinine 0.60, INR Comment 2.1H, Platelet Count 123L, Total Bilirubin 3.9H Results/Orders Lab Results Laboratory Tests Test 09/03/22 01:47 Range/Units White Blood Count 8.2 4.3-11.0 10^3/uL Red Blood Count 3.59 L 4.30-5.52 10^6/uL Hemoglobin 11.4 L 13.3-17.7 g/dL Hematocrit 34 L 40-54 % Mean Corpuscular Volume 95 80-99 fL Mean Corpuscular Hemoglobin 32 25-34 pg Mean Corpuscular Hemoglobin Concent 33 32-36 g/dL Red Cell Distribution Width 17.7 H 10.0-14.5 % Platelet Count 123 L 130-400 10^3/uL Mean Platelet Volume 8.4 L 9.0-12.2 fL Immature Granulocyte % (Auto) 0 % Neutrophils (%) (Auto) 80 H 42-75 % Lymphocytes (%) (Auto) 10 L 12-44 % Monocytes (%) (Auto) 8 0-12 % Eosinophils (%) (Auto) 1 0-10 % Basophils (%) (Auto) 1 0-10 % Neutrophils # (Auto) 6.6 1.8-7.8 10^3/uL Lymphocytes # (Auto) 0.8 L 1.0-4.0 10^3/uL Monocytes # (Auto) 0.7 0.0-1.0 10^3/uL Eosinophils # (Auto) 0.1 0.0-0.3 10^3/uL Basophils # (Auto) 0.1 0.0-0.1 10^3/uL Immature Granulocyte # (Auto) 0.0 0.0-0.1 10^3/uL Percent Immature Platelet Fraction 0.8 0.0-7.6 % Prothrombin Time 23.7 H 12.2-14.7 SEC INR Comment 2.1 H 0.8-1.4 Activated Partial Thromboplast Time 50 H 24-35 SEC Sodium Level 132 L 135-145 MMOL/L Potassium Level 4.2 3.6-5.0 MMOL/L Chloride Level 98 98-107 MMOL/L Carbon Dioxide Level 25 21-32 MMOL/L Anion Gap 9 5-14 MMOL/L Blood Urea Nitrogen 10 7-18 MG/DL Creatinine 0.60 0.60-1.30 MG/DL Estimat Glomerular Filtration Rate 123 BUN/Creatinine Ratio 17 Glucose Level 81 70-105 MG/DL Calcium Level 8.0 L 8.5-10.1 MG/DL Corrected Calcium 9.4 8.5-10.1 MG/DL Total Bilirubin 3.9 H 0.1-1.0 MG/DL Aspartate Amino Transf (AST/SGOT) 104 H 5-34 U/L Alanine Aminotransferase (ALT/SGPT) 43 0-55 U/L Alkaline Phosphatase 127 40-136 U/L Total Protein 8.2 6.4-8.2 GM/DL Albumin 2.2 L 3.2-4.5 GM/DL Lipase 31 8-78 U/L My Orders Orders - NICOLÁS FELICIANO MD Cbc With Automated Diff (09/03/22 01:48) Comprehensive Metabolic Panel (09/03/22 01:48) Lipase (09/03/22 01:48) Protime With Inr (09/03/22 01:48) Partial Thromboplastin Time (09/03/22 01:48) Ondansetron Injection (Zofran Injectio (09/03/22 02:30) Famotidine Tablet (Pepcid Tablet) (09/03/22 02:45) Antacid Suspension (Mylanta Suspension (09/03/22 02:45) Vital Signs/I&O 09/03/22 01:41 Temp 36.8 Pulse 100 Resp 24 B/P (MAP) 139/92 (108) Pulse Ox 99 Capillary Refill : Progress Note : Progress Note 42-year-old male with above history coming in due to abdominal distention in the setting of liver disease and ascites. ABCs were intact and vitals were stable on presentation on his baseline 3 L oxygen. His abdomen is distended, but he only does not have any tenderness or signs of spontaneous bacterial peritonitis including no fever or altered mental status. An IV was placed and basic labs were obtained and were significant for an INR of 2.1, total bilirubin around 3, creatinine 0.6. The patient essentially needs a large-volume paracentesis. He will be admitted to Dr. Duncan under observation status for eventual consult with Dr. Mcdaniels to be evaluated for this if deemed appropriate. Overall his prognosis is very poor given he continues to drink alcohol intermittently, and does not have any type of access to see a therapeutic support staff because they are too far away. Departure Impression Primary Impression: Abdominal ascites Qualified Codes: K70.31 - Alcoholic cirrhosis of liver with ascites Additional Impressions: Liver cirrhosis Qualified Codes: K70.31 - Alcoholic cirrhosis of liver with ascites Alcohol use disorder Disposition: ADMITTED INPATIENT Condition: Stable Admissions Decision to Admit Reason: Admit from ER (General) Decision to Admit/Date: Sep 03, 2022 Time/Decision to Admit Time: 02:45 Departure-Patient Inst. Referrals: SELENA OATES MD (PCP/Family) Primary Care Physician NICOLÁS FELICIANO MD Sep 03, 2022 01:58
[2022-09-03 02:04] LABS: ALBUMIN 2.2 GM/DL (3.2-4.5); INR 2.1 (0.8-1.4); POTASSIUM 4.2 MMOL/L (3.6-5.0); PROTHROMBIN TIME PATIENT 23.7 SEC (12.2-14.7)
[2022-09-03 02:07] LABS: TOTAL PROTEIN 8.2 GM/DL (6.4-8.2)
[2022-09-03 02:09] LABS: BILIRUBIN,TOTAL 3.9 MG/DL (0.1-1.0)
[2022-09-03 02:10] LABS: CREATININE SERUM 0.6 MG/DL (0.60-1.30)
[2022-09-03] MEDS ORDERED: ONDANSETRON 4 MG/2 ML (SDV) Z0FRAN IVP ONE (02:30)
[2022-09-03] MEDS ORDERED: ANTACID SUSP 30 ML UDC (MYLANTA) PO ONE (02:45)
[2022-09-03] MEDS ORDERED: FAMOTIDINE 20 MG (PEPCID) TABLET PO STA (02:45)
[2022-09-03] MEDS ORDERED: RT-ALBUTEROL/IPRATROPIUM 3 ML (DUONEB) VIAL INH PRN (05:15)
[2022-09-03] MEDS ORDERED: ONDANSETRON 4 MG/2 ML (SDV) Z0FRAN IV PRN ×2 (06:15→09:30)
[2022-09-03] MEDS ORDERED: PANTOPRAZOLE 40 MG (PROTONIX) VIAL IV PRN (06:15)
[2022-09-03] MEDS ORDERED: PROMETHAZINE INJ 25 MG/ML (PHENERGAN) AMP IVP PRN (06:15)
[2022-09-03] MEDS ORDERED: ACETAMINOPHEN 500 MG TAB (TYLENOL) PO PRN (06:15)
[2022-09-03] MEDS ORDERED: CATHETER FLUSH 10 ML SYR IVP PRN (06:15)
[2022-09-03] MEDS: fentaNYL INJ 100 MCG/2 ML AMP IV PRN ×4 (06:51→18:59)
--- NOTE | 2022-09-03 08:28 | Consultation - Surgery ---
ADAM MOULTON 09/03/22 0828: History of Present Illness History of Present Illness Patient Consulted On(stevan/time) 09/03/22 08:22 Date Seen by Provider: Sep 03, 2022 Time Seen by Provider: 08:22 Reason for Visit: Abdominal ascites History of Present Illness 42 yo male with past medical hx of liver failure secondary to alcohol abuse disorder arrived at ED yesterday for SOA. Pt admitted due to abdominal ascites. Pt states fluid really increased over the weekend but denies any abdominal pain or tenderness. Pt reports SOB and weakness that worsens upon exertion. Pt is on 3L oxygen at baseline and uses CPAP at night. Pt is currently on 4L of oxygen via NC. Pt is able to ambulate. Pt reports pain in back of right thigh secondary to pressure sores that are currently dressed. Reports nausea but denies vomiting, change in appetite, and blood in stool. Had 2 episodes of diarrhea over the weekend but normal bowel movements yesterday. Pt normally receives paracentesis q3-6 months and 11L is normally drained. Last paracentesis was in June where 11L were drained. Pt reports ETOH 2-3 days a week and 2-3 drinks per day. Pts last drink was 2 days ago. Denies any fever, chest pain, focal weakness or numbness, rash, or any other concerns. Labs reviewed. Allergies and Home Medications Allergies Coded Allergies: No Known Drug Allergies (Unverified , 12/07/21) Patient Home Medication List Home Medication List Reviewed: Yes Furosemide (Furosemide) 40 Mg Tablet, 40 MG PO 1200, (Reported) Entered as Reported by: SUMMER MORALES on 09/03/22 143 Last Action: Reviewed Hydroxyzine HCl (Hydroxyzine HCl) 25 Mg Tablet, 25 MG PO Q8H PRN for ANXIETY, (Reported) Entered as Reported by: SUMMER MORALES on 09/03/22 143 Last Action: Reviewed Spironolactone (Spironolactone) 100 Mg Tablet, 100 MG PO 1200, (Reported) Entered as Reported by: SUMMER MORALES on 09/03/22 143 Last Action: Reviewed Discontinued Medications Furosemide (Furosemide) 40 Mg Tablet, 40 MG PO BID Discontinued Reason: No Longer Taking Prescribed by: JANNETH OSORIO on 06/30/22 1141 Last Action: Discontinued Hydroxyzine HCl (Hydroxyzine HCl) 25 Mg Tablet, 25 MG PO Q6H Discontinued Reason: No Longer Taking Prescribed by: JANNETH OSORIO on 06/30/221140 Last Action: Discontinued Spironolactone (Aldactone) 100 Mg Tablet, 100 MG PO BID Discontinued Reason: No Longer Taking Prescribed by: JANNETH OSORIO on 06/30/221140 Last Action: Discontinued Past Cigwvmb-Tduwgk-Wazcuq Hx Patient Social History Smoking Status: Former Smoker Type Used: Cigarettes Alcohol Use?: Yes Have you traveled recently?: No Surgeries History of Surgeries: Yes (orchioplexy as a child) Surgeries: Abdominal Respiratory History of Respiratory Disorde: Yes (O2 AT 2L/NC CONTINUOUSLY) Cardiovascular History of Cardiac Disorders: No Neurological History of Neurological Disord: No Genitourinary History of Genitourinary Disor: No Gastrointestinal History of Gastrointestinal Di: Yes (ASCITES) Gastrointestinal Disorders: Liver Disease/Jaundice, Cirrhosis Musculoskeletal History of Musculoskeletal Dis: No Endocrine History of Endocrine Disorders: Yes (OBESITY) HEENT History of HEENT Disorders: No Cancer History of Cancer: No Psychosocial History of Psychiatric Problem: Yes (ALCOHOLISM) Behavioral Health Disorders: Anxiety Integumentary History of Skin or Integumenta: Yes (Cyst excision from thigh) Skin/Integumentary Disorders: Recent Skin Changes Family Medical History Significant Family History: No Pertinent Family Hx Review of Systems-General Constitutional: No chills, No dizziness, No fever; weakness EENTM: No vision loss, No nose congestion, No throat pain, No throat swelling Respiratory: No cough; dyspnea on exertion; No hemoptysis; short of breath; No stridor, No wheezing Cardiovascular: No palpitations, No syncope, No vascular heart diseas Gastrointestinal: No abdominal pain; constipation, diarrhea, nausea; No vomiting; other (ascites ) Genitourinary: No decreased output, No discharge, No dysuria, No frequency, No hematuria Musculoskeletal: other (bilateral LE edema ) Skin: No change in color, No change in hair/nails, No dryness; other (pressure ulcers on back of right thigh ) Psychiatric/Neurological: Denies Anxiety, Denies Depressed, Denies Emotional Problems, Denies Headache Physical Exam-General Problems Physical Exam Vital Signs Vital Signs - First Documented 09/03/22 01:41 Temp 36.8 Pulse 100 Resp 24 B/P (MAP) 139/92 (108) Pulse Ox 97 O2 Delivery Nasal Cannula O2 Flow Rate 3.00 Capillary Refill : General Appearance: WD/WN, no apparent distress HEENT: normal ENT inspection, TMs normal, pharynx normal Neck: non-tender, full range of motion, supple, normal inspection Respiratory: chest non-tender, no respiratory distress, no accessory muscle use, crackles (diffuse crackles right side) Cardiovascular: regular rate, rhythm, no edema, no gallop, no JVD, no murmur Gastrointestinal: normal bowel sounds, non tender; No soft; no pulsatile mass, abnormal bowel sounds, distended Back: normal inspection, no CVA tenderness, no vertebral tenderness Extremities: normal range of motion, non-tender, normal capillary refill, swelling Neurologic/Psychiatric: teletypesetter monitor II-XII nml as tested, no motor/sensory deficits, alert, normal mood/affect, oriented x 3 Skin: normal color, warm/dry Lymphatic: no adenopathy Data Review Labs Laboratory Tests 09/03/22 01:47: White Blood Count 8.2, Red Blood Count 3.59L, Hemoglobin 11.4L, Hematocrit 34L, Mean Corpuscular Volume 95, Mean Corpuscular Hemoglobin 32, Mean Corpuscular Hemoglobin Concent 33, Red Cell Distribution Width 17.7H, Platelet Count 123L, Mean Platelet Volume 8.4L, Immature Granulocyte % (Auto) 0, Neutrophils (%) (Auto) 80H, Lymphocytes (%) (Auto) 10L, Monocytes (%) (Auto) 8, Eosinophils (%) (Auto) 1, Basophils (%) (Auto) 1, Neutrophils # (Auto) 6.6, Lymphocytes # (Auto) 0.8L, Monocytes # (Auto) 0.7, Eosinophils # (Auto) 0.1, Basophils # (Auto) 0.1, Immature Granulocyte # (Auto) 0.0, Percent Immature Platelet Fraction 0.8, Prothrombin Time 23.7H, INR Comment 2.1H, Activated Partial Thromboplast Time 50H, Sodium Level 132L, Potassium Level 4.2, Chloride Level 98, Carbon Dioxide Level 25, Anion Gap 9, Blood Urea Nitrogen 10, Creatinine 0.60, Estimat Glomerular Filtration Rate 123, BUN/Creatinine Ratio 17, Glucose Level 81, Calcium Level 8.0L, Corrected Calcium 9.4, Total Bilirubin 3.9H, Aspartate Amino Transf (AST/SGOT) 104H, Alanine Aminotransferase (ALT/SGPT) 43, Alkaline Phosphatase 127, Total Protein 8.2, Albumin 2.2L, Lipase 31 Assessment/Plan Assessment/Plan Assessment/Plan Abdominal ascites Therapeutic Paracentesis for symptomatic relief postparacentesis albumin infusion Alcoholic cirrhosis of liver with ascites Recommend patient to receive additional care with corporate director talent assessment Alcohol use disorder alcohol cessation EUGENEJUSTA Nicole DO 09/03/222043: History of Present Illness History of Present Illness History of Present Illness Consult requested by Dr. Samuel for symptomatic ascites. Patient is a 42-year-old male known to me. Patient significant shortness of air. His abdominal distention has increased and has made it more difficult to breathe. He has not had a recent paracentesis and his last time approximately 11 L were removed. This was in June. Abdominal discomfort due to distention. Reports having nausea. He has not had any emesis. His symptoms worsen increasing activity. Laying still makes little bit better. Does use alcohol still. Denies fever sweats chills or chest pain at this time. Allergies and Home Medications Allergies Coded Allergies: No Known Drug Allergies (Unverified , 12/07/21) Patient Home Medication List Home Medication List Reviewed: Yes Furosemide (Furosemide) 40 Mg Tablet, 40 MG PO 1200, (Reported) Entered as Reported by: SUMMER MORALES on 09/03/221429 Last Action: Reviewed Hydroxyzine HCl (Hydroxyzine HCl) 25 Mg Tablet, 25 MG PO Q8H PRN for ANXIETY, (Reported) Entered as Reported by: SUMMER MORALES on 09/03/221429 Last Action: Reviewed Spironolactone (Spironolactone) 100 Mg Tablet, 100 MG PO 1200, (Reported) Entered as Reported by: SUMMER MORALES on 09/03/221429 Last Action: Reviewed Discontinued Medications Furosemide (Furosemide) 40 Mg Tablet, 40 MG PO BID Discontinued Reason: No Longer Taking Prescribed by: JANNETH OSORIO on 06/30/22 114 Last Action: Discontinued Hydroxyzine HCl (Hydroxyzine HCl) 25 Mg Tablet, 25 MG PO Q6H Discontinued Reason: No Longer Taking Prescribed by: JANNETH OSORIO on 06/30/22 1141 Last Action: Discontinued Spironolactone (Aldactone) 100 Mg Tablet, 100 MG PO BID Discontinued Reason: No Longer Taking Prescribed by: AJNNETH OSORIO on 06/30/22 1141 Last Action: Discontinued Past Nsnvjhl-Ghsste-Mgiirv Hx Surgeries History of Surgeries: Yes (orchioplexy as a child) Reviewed Nursing Assessment Reviewed/Agree w Nursing PMH: Yes Family Medical History Significant Family History: No Pertinent Family Hx Review of Systems-General Constitutional: No chills, No fever; weakness EENTM: No blurred vision Respiratory: No cough; dyspnea on exertion, short of breath Cardiovascular: No chest pain, No palpitations Gastrointestinal: abdominal pain, constipation, diarrhea, nausea; No vomiting; other (ascites ) Genitourinary: No decreased output, No discharge, No dysuria Musculoskeletal: No back pain, No joint pain; other (bilateral LE edema ) Skin: No change in color, No change in hair/nails Psychiatric/Neurological: Denies Anxiety, Denies Depressed, Denies Emotional Problems All Other Systems Reviewed Negative Unless Noted: Yes (Negative excepted noted.) Physical Exam-General Problems Physical Exam General Appearance: no apparent distress, obese HEENT: PERRL/EOMI, normal ENT inspection Neck: non-tender, supple Respiratory: chest non-tender, no respiratory distress (but slightly labored), no accessory muscle use Cardiovascular: regular rate, rhythm, no JVD Gastrointestinal: distended, tenderness (minimal with palpation), other (fluid wave) Rectal: deferred Extremities: non-tender, swelling Neurologic/Psychiatric: alert, normal mood/affect, oriented x 3 Skin: normal color, warm/dry Lymphatic: no adenopathy Assessment/Plan Assessment/Plan Assessment/Plan Abdominal ascites Alcoholic cirrhosis of liver with ascites Alcohol use disorder Shortness of air. -Therapeutic Paracentesis for symptomatic relief he understands risks and benefits and wishes to proceed. Consent obtained -postparacentesis albumin infusion -Recommend patient to receive additional care with corporate director talent assessment he has been unable to do so and poor compliance with continue EtOH use. -alcohol cessation DATE OF SERVICE: 09/03/22 PREOPERATIVE DIAGNOSIS: Symptomatic abdominal ascites. POSTOPERATIVE DIAGNOSIS: Symptomatic abdominal ascites. PROCEDURE: Ultrasound-guided paracentesis. SURGEON: Justa Knight DO ANESTHESIA: Local. ESTIMATED BLOOD LOSS: Scant. COMPLICATIONS: None. INDICATIONS: The patient is a 42 male with symtomatic ascites. The patient understands risks and benefits of procedure and wished to proceed. Consent was signed and on the chart. DESCRIPTION OF PROCEDURE: The patient was prepped and draped in sterile fashion after ultrasound was used to isolate the best pocket for drainage. Local anesthetic was infiltrated. An 11 blade scalpel was then used to make a small incision. The Ohme-U-Yxyjleec needle and catheter were then advanced through the abdominal wall until becky-colored fluid was withdrawn. The catheter was advanced, and the needle was removed. The 51011 mL of becky-colored fluid was withdrawn. The catheter was then removed, and a sterile bandage was applied. The patient tolerated procedure well without any complications. Supervisory-Addendum Brief Verification & Attestation Participated in pt care: history, MDM, physical Personally performed: exam, history, MDM, supervision of care Care discussed with: Medical Student Procedures: other (performed by me) Results interpretation: Verified all documentation Verification and Attestation of Medical Student E/M Service A medical student performed and documented this service in my presence. I reviewed and verified all information documented by the medical student and made modifications to such information, when appropriate. I personally performed the physical exam and medical decision making. Justa Knight, Sep 03, 2022,20:49 ADAM MOULTON Sep 03, 2022 08:28 JUSTA KNIGHT DO Sep 03, 2022 20:44
[2022-09-03] MEDS ORDERED: ANTACID SUSP 30 ML UDC (MYLANTA) PO PRN (09:30)
[2022-09-03] MEDS ORDERED: SENNA W/DOCUSATE (SENOKOT S) TABLET PO PRN (09:30)
[2022-09-03] MEDS ORDERED: LORazepam INJ 2 MG/ML (ATIVAN) VIAL IM/IV PRN (09:30)
[2022-09-03] MEDS ORDERED: ONDANSETRON 4 MG (ZOFRAN) ORAL DISSOLVE TAB SL PRN (09:30)
[2022-09-03] MEDS ORDERED: D5 1/2 NS 1000 ML IV SOLUTION 1,000 ML IV PRN (09:30)
[2022-09-03] MEDS ORDERED: LORazepam 1 MG (ATIVAN) TAB PO PRN (09:30)
[2022-09-03] MEDS ORDERED: LORazepam INJ 2 MG/ML (ATIVAN) VIAL IV PRN (09:30)
[2022-09-03] MEDS ORDERED: 1/2 NS IV SOLUTION 1,000 ML IV PRN (09:30)
[2022-09-03] MEDS: hydrOXYzine (VISTARIL/ATARAX) 25 MG capsule/tablet PO PRN ×2 (09:37→22:20)
[2022-09-03] MEDS: FOLIC ACID 1 MG TAB PO SCH (10:25)
--- NOTE | 2022-09-03 11:48 | History & Physical-Hospitalist ---
CORONASUSI Moreira 09/03/22 1148: History of Present Illness HPI/Chief Complaint CC: SOA 42yo M with h/o chronic liver failure, recurrent ascites, and alcohol abuse and O2 dependence at 3L presented to the ED yesterday with c/o worsening SOA and weakness. Over the past week, pt has noticed a worsening of his SOA secondary to his ascites. Pt states that this is not unusual and normally he experiences SOA when he needs a paracentesis. Pt became concerned when he unable to lift himself out of his chair, prompting him to come to the ED for evaluation. Pt has h/o ascites needing large volume paracentesis normally every 3-6 months. Pt's last paracentesis was on 812 and 10,975ml was drained. Pt states that he is concerned that his condition is worsening as normally his ascites is not so severe following a recent paracentesis. Workup in ED found elevated PT, INR, and PTT as well as elevations in AST and total bilirubin. MELD score was calculated to be 24. Pt was admitted to fourth floor for observation. Today, pt is laying in bed in mild discomfort. Abd is grossly distended due to ascites. Pt states that he is still having SOA and feels as though he can't take a deep breath. Pt currently on 4L NC and O2 sat is 94%. Pt is on 3L O2 at home and uses a CPAP machine at night. Pt also notes that he has a few "pressure sores" on the back of his right upper thigh that he has been keeping wrapped. Wounds were unable to be visualized due to pt's limited mobility. Pt states that he has been able to eat but appetite has been decreased secondary to his SOA. Pt has been voiding without issue but notes constipation following 2 episodes of diarrhea this weekend, which he says his normal when his ascites is this severe. Pt states that he does not currently see a chronometer tester due to having to travel outside of [place] for care. Pt is followed by Dr. Camarillo and per pt, was last seen 1 month ago. Pt has h/o alcohol abuse disorder and currently drinks 2-3x weekly and has 2-3 drinks per day of liquor. Pt denies nausea, vomiting, abd pain, CP, fever, and hematuria. Source: patient, old records Exam Limitations: no limitations Date Seen 09/03/22 Time Seen by a Provider: 12:18 Attending Physician Vy Camarillo MD PCP Admitting Physician: Evette Harris DO Attending Physician: Evette Harris DO Referring Physician Date of Admission Sep 03, 2022 at 02:48 Home Medications & Allergies Home Medications Reviewed patient Home Medication Reconciliation performed by pharmacy medication reconciliations certified appliance service technician and/or nursing. Patients Allergies have been reviewed. Allergies Allergies Coded Allergies No Known Drug Allergies (Unverified12/07/21) Past Xzjosaj-Qvkrxd-Jrvree Hx Patient Social History Tobacco Use?: No (quit 3 years ago) Tobacco type used: Cigarettes (8-10yrs, 0.5 pack daily) Smoking Status: Former Smoker Smokeless Tobacco Frequency: Never a User Use of E-Cig and/or Vaping dev: No Substance use?: No Alcohol Use?: Yes Alcohol type: Hard Liquor Additional alcohol type: VODKA (3-4 DRINKS) Alcohol Frequency: Couple times a week (2-3x weekly, 2-3 drinks a day) Pt feels they are or have been: No Immunizations Up To Date First/Initial COVID19 Vaccinat: ? Tetanus Booster (TDap): Unknown Hepatitis A: Yes Hepatitis B: Yes Current Status Advance Directives: No Communicates: Verbally Primary Language: [place] Preferred Spoken Language: [place] Is interpretation needed?: No Implanted or Applied Medical D: CPAP Past Medical History Surgeries: Abdominal (paracentesis) Currently Using CPAP: Yes Liver Disease/Jaundice, Cirrhosis Anxiety Recent Skin Changes (jaundice) Alcohol abuse Chronic liver failure Recurrent ascites Family Medical History No Pertinent Family Hx Patient reported no family members have chronic medical conditions Review of Systems Constitutional: No chills, No diaphoresis, No fever; weakness (only with getting up from sitting position) EENTM: No ear discharge, No hearing loss, No ear pain Respiratory: No cough; short of breath Cardiovascular: No chest pain, No palpitations Gastrointestinal: No abdominal pain; constipation; No diarrhea; jaundice; No melena, No nausea, No vomiting Genitourinary: No decreased output, No discharge Musculoskeletal: No back pain, No gout Skin: No change in color, No change in hair/nails Psychiatric/Neurological: Anxiety; Denies Depressed All Other Systems Reviewed Negative Unless Noted: Yes Physical Exam Physical Exam Vital Signs Vital Signs - First Documented 09/03/22 01:41 Temp 36.8 Pulse 100 Resp 24 B/P (MAP) 139/92 (108) Pulse Ox 97 O2 Delivery Nasal Cannula O2 Flow Rate 3.00 Capillary Refill : Height, Weight, BMI Height: '" Weight: lbs. oz. kg; 55.95 BMI Method: General Appearance: Anxious, Chronically ill, Mild Distress HEENT: PERRL/EOMI, Scleral Icterus (L), Scleral Icterus (R) Neck: Normal Inspection, Supple Respiratory: No Accessory Muscle Use, Crackles (diffusely R lung ) Cardiovascular: Regular Rate, Rhythm, No Gallop, No Murmur Gastrointestinal: Abnormal Bowel Sounds (hypoactive), Distended (due to large volume ascites) Back: Normal Inspection, No CVA Tenderness; No Muscle Spasm Extremity: Non Tender, Pedal Edema Neurologic/Psychiatric: Alert, Oriented x3 Skin: Warm/Dry, Jaundice Lymphatic: No Adenopathy Results Results/Procedures Labs Laboratory Tests 09/03/22 01:47 Patient resulted labs reviewed. Assessment/Plan Admission Diagnosis Ascites and SOA Admission Status: Observation Reason for Inpatient Admission: Ascites and SOA Assessment and Plan 1. Ascites -Surgery consulted for paracentesis 2. Chronic Liver Failure -secondary to alcohol use -MELD score of 24 -Does not have chronometer tester 3. SOA -secondary to ascites, currently O2 sat 96% on 4L NC -3L O2 at home and CPAP 4. Alcohol Abuse -discuss alcohol cessation -100mg Thiamine PO, 1mg Folic PO, 75mls/hr IV Dextrose prn 5. Thrombocytopenia -Plt count of 123, will continue to monitor 6. Hyponatremia -IV NaCl started 7. Hypoalbuminemia -secondary to chronic liver failure Plan: Pt had a paracentesis performed by Dr. Mcdaniels in June, Dr. Mcdaniels has been consulted MELD Score is 24 but is not a candidate for liver transplantation due to continuing alcohol use Continue to monitor LFTs and coags EVETTE HARRIS DO 09/03/222035: History of Present Illness HPI/Chief Complaint CC: Severe ascites HPI: This is a 42yoWM alcoholic who continues to drink ETOH even though ESLD has been diagnosed for years who presents from ER for paracestesis. Patient has a severe ascites and can't take a deep breath due to ascites. Source: patient, old records Exam Limitations: no limitations Past Dodadpt-Mydpza-Nxcubi Hx Patient Social History Marrital Status: single Employed/Student: unemployed Tobacco Use?: No (quit 3 years ago) Smoking Status: Former Smoker Alcohol Use?: Yes Past Medical History Cirrhosis Review of Systems Constitutional: see HPI Physical Exam Physical Exam General Appearance: Anxious, Chronically ill, Mild Distress Eyes: Right Eye Normal Inspection, Right Eye PERRL HEENT: PERRL/EOMI, Normal ENT Inspection, Pharynx Normal, Moist Mucous Membranes, Pale Conjunctivae (L), Scleral Icterus (L), Scleral Icterus (R) Neck: Full Range of Motion, Normal Inspection, Non Tender Respiratory: Chest Non Tender, Lungs Clear, No Accessory Muscle Use, No Respiratory Distress, Accessory Muscle Use, Decreased Breath Sounds Cardiovascular: No Edema, No Gallop, No JVD, No Murmur, Normal Peripheral Pulses, Tachycardia Gastrointestinal: Normal Bowel Sounds, No Organomegaly, No Pulsatile Mass, Non Tender, Soft Back: Normal Inspection, No CVA Tenderness, No Vertebral Tenderness Extremity: Normal Capillary Refill, Normal Inspection, Normal Range of Motion, Non Tender, No Calf Tenderness, No Pedal Edema Neurologic/Psychiatric: Alert, Oriented x3, No Motor/Sensory Deficits, Normal Mood/Affect Skin: Normal Color, Warm/Dry Lymphatic: No Adenopathy Assessment/Plan Admission Diagnosis Severe ascites ESLD ETOH withdrawal Plan: Paracentesis Admission Status: Observation Diagnosis/Problems Diagnosis/Problems (1) Ascites Status: Acute (2) Liver cirrhosis Status: Acute Qualifiers: Hepatic cirrhosis type: alcoholic cirrhosis Ascites presence: with ascites Qualified Codes: K70.31 - Alcoholic cirrhosis of liver with ascites Supervisory-Addendum Brief Verification & Attestation Participated in pt care: history, MDM, physical Personally performed: exam, history, MDM, supervision of care Care discussed with: Medical Student Procedures: n/a Results interpretation: Verified all documentation Verification and Attestation of Medical Student E/M Service A medical student performed and documented this service in my presence. I reviewed and verified all information documented by the medical student and made modifications to such information, when appropriate. I personally performed the physical exam and medical decision making. Evette Harris Sep 03, 2022,20:36 SUSI LEMUS Sep 03, 2022 11:48 EVETTE HARRIS DO Sep 03, 2022 20:36
[2022-09-03] MEDS: CATHETER FLUSH 10 ML SYR IVP SCH (13:12)
[2022-09-03] MEDS ORDERED: HYDR-700 PO (14:30)
[2022-09-03] MEDS ORDERED: FURO40TA4 PO (14:30)
[2022-09-03] MEDS ORDERED: SPIR100T4 PO (14:30)
[2022-09-03] MEDS ORDERED: LIDOCAINE 1% INJ 20 ML VIAL INJ STA (15:02)
--- NOTE | 2022-09-03 16:31 | Diagnostic Imaging Report ---
INDICATION: Ascites. Sonographic guidance was provided for Dr. Mcdaniels for performance of a paracentesis. There is a large amount of ascites in the right upper quadrant and left upper quadrant. There is large ascites in the left lower quadrant and moderate ascites in the right lower quadrant. IMPRESSION: Large abdominal ascites. Guidance was provided for Dr. Mcdaniels for performance of a paracentesis. Dictated by: Dictated on workstation # [id number]
[2022-09-03] MEDS ORDERED: ALBUMIN IV ONE (18:00)
[2022-09-03] MEDS: MAGNESIUM OXIDE (MAG-OX)400 MG TAB PO SCH (20:29)
[2022-09-03] MEDS ORDERED: NS IV 500 ML 500 ML IV PRN (20:30)
[2022-09-03] MEDS ORDERED: LIDOCAINE UROJET 2% GEL 10 ML PKG TOP ONE ×2 (20:45)
[2022-09-03] MEDS ORDERED: NS IV 1000 ML 1,000 ML IV SCH (20:45)
[2022-09-03] MEDS ORDERED: LIDOCAINE UROJET 2% GEL 10 ML PKG ONE (20:45)
--- NOTE | 2022-09-03 20:51 | Diagnostic Imaging Report ---
EXAMINATION: Chest, one view. HISTORY: Short of breath. COMPARISON: 06/28/2022. FINDINGS: There is new complete opacification of the right hemithorax. Right mainstem bronchus is cut off. Patient is rotated to the right. Left lung is generally clear. No pneumothorax. IMPRESSION: 1. New complete opacification of the right hemithorax favored to represent mucus plugging and complete collapse, likely with a component of pleural fluid as well. Dictated by: Dictated on workstation # [id number]
[2022-09-03 22:14] LABS: EOSINOPHILS % (AUTO) 2 % (0-10); MEAN CORPUSCULAR VOLUME 98 fL (80-99); MONOCYTES # (AUTO) 0.1 10^3/uL (0.0-1.0)
[2022-09-03 22:16] LABS: BASOPHILS % (AUTO) 1 % (0-10); HEMATOCRIT 32 % (40-54); HEMOGLOBIN 10.5 g/dL (13.3-17.7); LYMPHOCYTES # (AUTO) 0.1 10^3/uL (1.0-4.0); LYMPHOCYTES % (AUTO) 11 % (12-44); MEAN CORPUSCULAR HEMOGLOBIN 32 pg (25-34); MEAN CORPUSCULAR HGB CONC 33 g/dL (32-36); MEAN PLATELET VOLUME 8.8 fL (9.0-12.2); MONOCYTES % (AUTO) 7 % (0-12); NEUTROPHILS # (AUTO) 0.8 10^3/uL (1.8-7.8); NEUTROPHILS % (AUTO) 78 % (42-75); PLATELET COUNT 93 10^3/uL (130-400)
[2022-09-03 22:20] LABS: WHITE BLOOD COUNT 1.1 10^3/uL (4.3-11.0)
[2022-09-03 22:40] LABS: ALBUMIN 2.1 GM/DL (3.2-4.5); BILIRUBIN,TOTAL 5.4 MG/DL (0.1-1.0); CALCIUM 7.9 MG/DL (8.5-10.1); CREATININE SERUM 0.91 MG/DL (0.60-1.30); POTASSIUM 4.5 MMOL/L (3.6-5.0)
[2022-09-03 22:44] LABS: BAND NEUTROPHILS 4 %; BASOPHILS % (MANUAL) 3 %; EOSINOPHILS % (MANUAL) 3 %; LYMPHOCYTES % (MANUAL) 16 %; MONOCYTES % (MANUAL) 9 %; NEUTROPHILS % (MANUAL) 65 %; NUCLEATED RED BLOOD CELLS 1; POLYCHROMASIA MARKED; SPHEROCYTES MARKED
[2022-09-03 22:45] LABS: BURR CELLS MODERATE; CRENATED RBC MARKED; ROULEAUX MOD; TEAR DROP CELLS SLIGHT; TOXIC GRANULATION/VACUOLAZATIO 2+
[2022-09-03] MEDS ORDERED: DEXTROSE 50% 50 ML (IMS) SYR ONE (22:49)
[2022-09-03 23:28] LABS: ABG BASE EXCESS -5.2 MMOL/L (-2.5-2.5); ABG OXYGEN SATURATION 94 % (94-100); ABG PCO2 56 MMHG (35-45); ABG PO2 80 MMHG (79-93); ABG TCO2 23.1 MMOL/L (21.0-31.0)
[2022-09-03 23:30] LABS: ABG PH 7.21 (7.37-7.43); ALLENS TEST YES-POS; INSPIRED O2 5L; VENTILATOR NO
[2022-09-03 23:31] LABS: PATIENT TEMP 37.8
[2022-09-04] MEDS ORDERED: DEXTROSE 50% 50 ML (IMS) SYR ONE ×6 (00:12→07:59)
[2022-09-04] MEDS ORDERED: PIPERACILLIN SODIUM/TAZOBACTAM 4.5 GM in NS (IVPB) 100 ML IV ONE (00:30)
[2022-09-04] MEDS ORDERED: NS IV 500 ML 500 ML IV SCH (00:30)
[2022-09-04] MEDS ORDERED: DEXTROSE 50% 50 ML (IMS) SYR IV ONE (00:30)
[2022-09-04 00:34] LABS: BILIRUBIN,URINE 2+ (NEGATIVE); CLARITY,URINE SL CLOUDY; COLOR,URINE DARK YELLOW; GLUCOSE, URINE (UA) 1+ (NEGATIVE); KETONES,URINE TRACE (NEGATIVE); LEUKOCYTE ESTERASE ,URINE NEGATIVE (NEGATIVE); NITRITE,URINE POSITIVE (NEGATIVE); PROTEIN,URINE 1+ (NEGATIVE)
[2022-09-04] MEDS: CATHETER FLUSH 10 ML SYR IVP SCH ×2 (01:16→06:00)
[2022-09-04] MEDS: NOREPINEPHRINE 8 MG/250 ML 250 ML IV SCH ×2 (01:24→07:22)
[2022-09-04 01:29] LABS: BACTERIA,URINE MODERATE /HPF; HYALINE CASTS, URINE 0-2 /LPF; RENAL EPITHELIAL CELLS,URINE 0-2 /HPF; WBC,URINE RARE /HPF
[2022-09-04 02:27] VITALS: BP 106/59
[2022-09-04] MEDS ORDERED: D5 NS 1000 ML IV SOLUTION 1,000 ML IV SCH (02:45)
[2022-09-04 02:58] VITALS: BP 77/40
[2022-09-04] MEDS ORDERED: RT-ALBUTEROL/IPRATROPIUM 3 ML (DUONEB) VIAL INH PRN ×2 (03:15→09:45)
[2022-09-04] MEDS ORDERED: DEXTROSE 10% IV SOLUTION 1,000 ML IV ONE (03:31)
[2022-09-04] MEDS: DEXTROSE 50% 50 ML (IMS) SYR IV PRN ×3 (04:54→08:03)
[2022-09-04] MEDS ORDERED: GLUCAGON EMERGENCY 1 MG/KIT IM PRN (05:15)
--- NOTE | 2022-09-04 05:16 | Progress Note ---
Progress Note Called by RN for declining function with alcohol withdrawal so admitted to the ICU. Patient has a very poor prognosis given liver failure and continued alcohol use with current alcohol withdrawal status post large-volume paracentesis and signs of spontaneous bacterial peritonitis and/or pneumonia so he will be placed on broad-spectrum Levaquin and provided supportive care. Patient is not a transplant candidate due to current alcoholism and there is no other available treatments for this patient. Continue hypoglycemia prompted phone call from nurse at 0510 which prompted conversation of running out of D50 amps and he is on D10 at 75 cc an hour so we will attempt to initiate glucagon to provide support. Reviewed labs and patient is beginning to show signs of complete end-of-life multisystem organ failure and he remains a full code so we will continue to support patient and provide glucose in any capacity but prognosis is grave and I predict cardiac arrest and from liver failure causing multisystem organ failure. LINNEA HARRIS DO Sep 04, 2022 05:16
[2022-09-04 05:23] LABS: ABG BASE EXCESS -6.6 MMOL/L (-2.5-2.5); ABG OXYGEN SATURATION 94 % (94-100); ABG PCO2 56 MMHG (35-45); ABG PO2 77 MMHG (79-93); ABG TCO2 22.1 MMOL/L (21.0-31.0)
[2022-09-04 05:25] LABS: ABG PH 7.19 (7.37-7.43); ALLENS TEST YES-POS; INSPIRED O2 50%; PATIENT TEMP 37; VENTILATOR NO
[2022-09-04 05:28] LABS: BASOPHILS % (AUTO) 1 % (0-10); EOSINOPHILS # (AUTO) 0.1 10^3/uL (0.0-0.3); EOSINOPHILS % (AUTO) 3 % (0-10); HEMOGLOBIN 10.6 g/dL (13.3-17.7)
[2022-09-04 05:30] LABS: HEMATOCRIT 34 % (40-54); LYMPHOCYTES # (AUTO) 0.3 10^3/uL (1.0-4.0); LYMPHOCYTES % (AUTO) 13 % (12-44); MEAN CORPUSCULAR HEMOGLOBIN 32 pg (25-34); MEAN CORPUSCULAR HGB CONC 32 g/dL (32-36); MEAN CORPUSCULAR VOLUME 102 fL (80-99); MEAN PLATELET VOLUME 9.7 fL (9.0-12.2); MONOCYTES # (AUTO) 0.1 10^3/uL (0.0-1.0); MONOCYTES % (AUTO) 4 % (0-12); NEUTROPHILS # (AUTO) 1.5 10^3/uL (1.8-7.8); NEUTROPHILS % (AUTO) 77 % (42-75); PLATELET COUNT 89 10^3/uL (130-400)
[2022-09-04 05:56] LABS: ALBUMIN 2.2 GM/DL (3.2-4.5); BILIRUBIN,TOTAL 5.5 MG/DL (0.1-1.0); CREATININE SERUM 0.92 MG/DL (0.60-1.30); MAGNESIUM 1.6 MG/DL (1.6-2.4); PHOSPHORUS 3.3 MG/DL (2.3-4.7); POTASSIUM 4.5 MMOL/L (3.6-5.0); TOTAL PROTEIN 7.1 GM/DL (6.4-8.2)
[2022-09-04] MEDS ORDERED: ALBUMIN 25% 25 GM/100 ML 50 ML IV SCH (06:00)
[2022-09-04] MEDS ORDERED: POTASSIUM CL 10MEQ/50ML IVPB 50 ML IV SCH (06:00)
[2022-09-04] MEDS ORDERED: MAGNESIUM 1 GM/100 ML IVPB 100 ML IV SCH (06:00)
[2022-09-04] MEDS ORDERED: RT-ALBUTEROL/IPRATROPIUM 3 ML (DUONEB) VIAL INH SCH (06:00)
[2022-09-04] MEDS ORDERED: PIPERACILLIN SODIUM/TAZOBACTAM 4.5 GM in NS (IVPB) 100 ML IV SCH (06:00)
[2022-09-04] MEDS ORDERED: KCL 20 MEQ TAB (K-DUR) PO SCH (06:00)
[2022-09-04 06:26] VITALS: BP 94/54
[2022-09-04] MEDS ORDERED: THIAMINE 100 MG (VITAMIN B-1) TAB PO SCH (07:00)
[2022-09-04] MEDS ORDERED: MULTIVIT W/MINERALS TAB (THERAGRAN M) PO SCH (07:00)
[2022-09-04 07:22] VITALS: BP 90/61
--- NOTE | 2022-09-04 07:23 | Progress Note - Surgery ---
ADAM MOULTON 09/04/22 0723: Subjective Date Seen by a Provider: Sep 04, 2022 Time Seen by a Provider: 07:21 Subjective/Events-last exam 42 yo male with past medical hx of liver failure secondary to alcohol abuse disorder moved to ICU. Pt admitted due to declining status and alcohol withdrawal. Pt is on continuous CPAP. Paracentisis done yesterday with 12.5L drained. Pt has signs of spontaneous bacterial peritonitis and pneumonia and has been started on Levaquin. Pt is full code. Labs reviewed, chest x-ray pending. Chest x-ray 09/03 - New complete opacification of the right hemithorax favored to represent mucus plugging and complete collapse, likely with a component of pleural fluid as well. Focused Exam Lactate Level 09/03/22 22:05: Lactic Acid Level 8.09*H 09/03/22 23:55: Lactic Acid Level 8.92*H 09/04/22 02:05: Lactic Acid Level 8.26*H Respiratory: Normal Breath Sounds, No Accessory Muscle Use, No Respiratory Distress Cardiovascular: Regular Rate, Rhythm, No Edema, No JVD, No Murmur Skin: normal color, warm/dry Objective Exam Vital Signs Date Time Temp Pulse Resp B/P (MAP) Pulse Ox O2 Delivery O2 Flow Rate FiO2 09/04/22 06:26 105 34 92 50.00 09/04/22 06:15 105 26 94/54 (67) 92 NIV Bilevel 50.00 09/04/22 06:01 108 75/50 09/04/22 06:00 107 21 75/50 (58) 92 NIV Bilevel 50.00 09/04/22 05:00 112 39 101/59 (73) 93 NIV Bilevel 50.00 09/04/22 04:00 113 33 109/72 (84) 94 NIV Bilevel 50.00 09/04/22 03:00 120 26 112/59 (76) 94 NIV Bilevel 50.00 09/04/22 02:58 112 96 50 09/04/22 02:39 96 NIV Bilevel 50 09/04/22 02:27 116 25 94 50.00 09/04/22 02:00 117 20 111/59 (76) 95 NIV Bilevel 50.00 09/04/22 01:24 112 77/40 09/04/22 01:00 112 81/40 (54) 93 NIV Bilevel 50.00 09/04/22 01:00 112 09/04/22 00:00 121 31 89/41 (57) 94 NIV Bilevel 50.00 09/03/22 23:56 121 22 93 50.00 09/03/22 23:00 123 24 99/42 (61) 93 Nasal Cannula 5.00 09/03/22 22:45 123 40 81/37 (52) 93 Nasal Cannula 5.00 09/03/22 22:30 124 25 106/43 (64) 93 Nasal Cannula 5.00 09/03/22 22:15 126 19 104/46 (65) 93 Nasal Cannula 5.00 09/03/22 22:00 125 30 110/44 (66) 92 Nasal Cannula 5.00 09/03/22 21:45 126 23 126/56 (79) 91 Nasal Cannula 5.00 09/03/22 21:30 128 13 127/59 (81) 91 Nasal Cannula 5.00 09/03/22 21:24 129 09/03/22 21:23 38.0 129 23 115/54 (74) 91 Nasal Cannula 5.00 09/03/22 21:00 92 Nasal Cannula 4.00 09/03/22 20:29 38.4 09/03/22 20:04 38.4 126 26 111/52 (71) 94 Nasal Cannula 4.00 09/03/22 19:58 Nasal Cannula 4.00 09/03/22 19:35 37.0 09/03/22 19:02 124 09/03/22 16:16 37.0 117 28 136/61 (86) 97 Nasal Cannula 4.00 09/03/22 13:36 116 09/03/22 11:05 36.2 107 18 133/72 (92) 96 Nasal Cannula 4.00 09/03/22 07:40 Nasal Cannula 4.00 I & O 09/04/22 07:00 Intake Total 1400 ml Output Total 26100 ml Balance -32559 ml Capillary Refill : General Appearance: Anxious, Chronically ill, Mild Distress HEENT: PERRL/EOMI, Normal ENT Inspection, Pharynx Normal, Moist Mucous Membr anes, Pale Conjunctivae (L), Scleral Icterus (L), Scleral Icterus (R) Neck: Full Range of Motion, Normal Inspection, Non Tender Respiratory: Chest Non Tender, Lungs Clear, No Accessory Muscle Use, No Respiratory Distress, Accessory Muscle Use, Decreased Breath Sounds Cardiovascular: No Edema, No Gallop, No JVD, No Murmur, Normal Peripheral Pulses, Tachycardia Gastrointestinal: distended, tenderness (minimal with palpation), other (fluid wave) Extremity: Normal Capillary Refill, Normal Inspection, Normal Range of Motion, Non Tender, No Calf Tenderness, No Pedal Edema Neurologic/Psychiatric: Alert, Oriented x3, No Motor/Sensory Deficits, Normal Mood/Affect Skin: Normal Color, Warm/Dry Lymphatic: No Adenopathy Results Lab Laboratory Tests 09/03/22 22:05: White Blood Count 1.1*L, Red Blood Count 3.29L, Hemoglobin 10.5L, Hematocrit 32L , Mean Corpuscular Volume 98, Mean Corpuscular Hemoglobin 32, Mean Corpuscular Hemoglobin Concent 33, Red Cell Distribution Width 18.0H, Platelet Count 93L, Mean Platelet Volume 8.8L, Immature Granulocyte % (Auto) 2, Neutrophils (%) (Auto) 78H, Lymphocytes (%) (Auto) 11L, Monocytes (%) (Auto) 7, Eosinophils (%) (Auto) 2, Basophils (%) (Auto) 1, Neutrophils # (Auto) 0.8L, Lymphocytes # (Auto) 0.1L, Monocytes # (Auto) 0.1, Eosinophils # (Auto) 0.0, Basophils # (Auto) 0.0, Immature Granulocyte # (Auto) 0.0, Neutrophils % (Manual) 65, Lymphocytes % (Manual) 16, Monocytes % (Manual) 9, Eosinophils % (Manual) 3, Basophils % (Manual) 3, Band Neutrophils 4, Nucleated Red Blood Cells 1, Toxic Granulation 2+, Percent Immature Platelet Fraction 1.0, Polychromasia MARKED, Spherocytes MARKED, Target Cells , Tear Drop Cells SLIGHT, Ying Cells MODERATE, Crenated Cell MARKED, Rouleau MOD, Sodium Level 132L, Potassium Level 4.5, Chloride Level 98, Carbon Dioxide Level 19L, Anion Gap 15H, Blood Urea Nitrogen 14, Creatinine 0.91, Estimat Glomerular Filtration Rate 107, BUN/Creatinine Ratio 15, Glucose Level 36*L, Lactic Acid Level 8.09*H, Calcium Level 7.9L, Corrected Calcium 9.4, Total Bilirubin 5.4H, Aspartate Amino Transf (AST/SGOT) 97H, Alanine Aminotransferase (ALT/SGPT) 42, Alkaline Phosphatase 95, Total Protein 7.0, Albumin 2.1L, Procalcitonin 2.97H 09/03/22 23:00: Urine Color DARK YELLOW, Urine Clarity SL CLOUDY, Urine pH 5.0, Urine Specific Buchanan >=1.030, Urine Protein 1+H, Urine Glucose (UA) 1+H, Urine Ketones TRACEH , Urine Nitrite POSITIVEH, Urine Bilirubin 2+H, Urine Urobilinogen 4.0, Urine Leukocyte Esterase NEGATIVE, Urine RBC (Auto) 2+H, Urine RBC 10-25H, Urine WBC RARE, Urine Renal Epithelial Cells 0-2, Urine Crystals NONE, Urine Bacteria MODERATEH, Urine Casts PRESENT, Urine Hyaline Casts 0-2H, Urine Mucus NEGATIVE, Urine Culture Indicated YES 09/03/22 23:17: Glucometer 71 09/03/22 23:19: Blood Gas Puncture Site RR, Blood Gas Patient Temperature 37.8, Arterial Blood pH 7.21*L, Arterial Blood Partial Pressure CO2 56H, Arterial Blood Partial Pressure O2 80, Arterial Blood HCO3 21L, Arterial Blood Total CO2 23.1, Arterial Blood Oxygen Saturation 94, Arterial Blood Base Excess -5.2L, Abelino Test YES- POS, Blood Gas Ventilator Setting NO, Blood Gas Inspired Oxygen 5L 09/03/22 23:55: Lactic Acid Level 8.92*H 09/04/22 00:10: Glucometer 31*L 09/04/22 00:42: Glucometer 59*L 09/04/22 01:07: Glucometer 93 09/04/22 02:05: Lactic Acid Level 8.26*H 09/04/22 02:25: Glucometer 31*L 09/04/22 03:05: Glucometer 55*L 09/04/22 03:17: Glucometer 46*L 09/04/22 04:01: Glucometer 80 09/04/22 04:30: White Blood Count 2.0L, Red Blood Count 3.29L, Hemoglobin 10.6L, Hematocrit 34L, Mean Corpuscular Volume 102H, Mean Corpuscular Hemoglobin 32, Mean Corpuscular Hemoglobin Concent 32, Red Cell Distribution Width 18.4H, Platelet Count 89L, Mean Platelet Volume 9.7, Immature Granulocyte % (Auto) 3, Neutrophils (%) (Auto) 77H, Lymphocytes (%) (Auto) 13, Monocytes (%) (Auto) 4, Eosinophils (%) (Auto) 3, Basophils (%) (Auto) 1, Neutrophils # (Auto) 1.5L, Lymphocytes # (A uto) 0.3L, Monocytes # (Auto) 0.1, Eosinophils # (Auto) 0.1, Basophils # (Auto) 0.0, Immature Granulocyte # (Auto) 0.1, Percent Immature Platelet Fraction 2.9, Sodium Level 132L, Potassium Level 4.5, Chloride Level 99, Carbon Dioxide Level 17L, Anion Gap 16H, Blood Urea Nitrogen 14, Creatinine 0.92, Estimat Glomerular Filtration Rate 106, BUN/Creatinine Ratio 15, Glucose Level 34*L, Calcium Level 8.0L, Corrected Calcium 9.4, Phosphorus Level 3.3, Magnesium Level 1.6, Total Bilirubin 5.5H, Aspartate Amino Transf (AST/SGOT) 99H, Alanine Aminotransferase (ALT/SGPT) 41, Alkaline Phosphatase 97, Total Protein 7.1, Albumin 2.2L 09/04/22 04:39: Glucometer 55*L 09/04/22 05:05: Blood Gas Puncture Site RR, Blood Gas Patient Temperature 37, Arterial Blood pH 7.19*L, Arterial Blood Partial Pressure CO2 56H, Arterial Blood Partial Pressure O2 77L, Arterial Blood HCO3 20L, Arterial Blood Total CO2 22.1, Arterial Blood Oxygen Saturation 94, Arterial Blood Base Excess -6.6L, Abelino Test YES-POS, Bl ood Gas Ventilator Setting NO, Blood Gas Inspired Oxygen 50% 09/04/22 06:07: Glucometer 66L 09/04/22 07:04: Glucometer 72 Microbiology 09/03/22 MRSA Screen - Preliminary, Resulted MRSA not isolated Assessment/Plan Assessment/Plan Assessment/Plan Abdominal ascites Alcoholic cirrhosis of liver with ascites Alcohol use disorder Shortness of air. 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 -alcohol cessation DATE OF SERVICE: 09/03/22 PREOPERATIVE DIAGNOSIS: Symptomatic abdominal ascites. POSTOPERATIVE DIAGNOSIS: Symptomatic abdominal ascites. PROCEDURE: Ultrasound-guided paracentesis. SURGEON: Justa Mcdaniels DO ANESTHESIA: Local. ESTIMATED BLOOD LOSS: Scant. COMPLICATIONS: None. INDICATIONS: The patient is a 42 male with symtomatic ascites. The patient understands risks and benefits of procedure and wished to proceed. Consent was signed and on the chart. DESCRIPTION OF PROCEDURE: The patient was prepped and draped in sterile fashion after ultrasound was used to isolate the best pocket for drainage. Local anesthetic was infiltrated. An 11 blade scalpel was then used to make a small incision. The [id number] needle and catheter were then advanced through the abdominal wall until becky-colored fluid was withdrawn. The catheter was advanced, and the needle was removed. The 33324 mL of becky-colored fluid was withdrawn. The catheter was then removed, and a sterile bandage was applied. The patient tolerated procedure well without any complications. JUSTA MCDANIELS DO 09/04/222036: Subjective Subjective/Events-last exam Patient passed prior to me seeing today. Objective Exam General Appearance: Other (Patient passed prior to me seeing) Assessment/Plan Assessment/Plan Assessment/Plan Patient passed prior to me seeing Supervisory-Addendum Brief Verification & Attestation Participated in pt care: other (Patient passed prior to me seeing) Personally performed: other (Patient passed prior to me seeing) Care discussed with: Medical Student Procedures: n/a Results interpretation: Verified all documentation Patient passed prior to me seeing ADAM MOULTON Sep 04, 2022 07:23 JUSTA MCDANIELS DO Sep 04, 2022 20:37
[2022-09-04] MEDS: FOLIC ACID 1 MG TAB PO SCH (08:25)
[2022-09-04] MEDS: MAGNESIUM OXIDE (MAG-OX)400 MG TAB PO SCH (08:25)
[2022-09-04 08:39] LABS: ABG BASE EXCESS -7.2 MMOL/L (-2.5-2.5); ABG OXYGEN SATURATION 94 % (94-100); ABG PCO2 53 MMHG (35-45); ABG PO2 79 MMHG (79-93); ABG TCO2 21.1 MMOL/L (21.0-31.0)
[2022-09-04 08:43] LABS: INSPIRED O2 50%; PATIENT TEMP 37.2; VENTILATOR NO
--- NOTE | 2022-09-04 08:57 | Diagnostic Imaging Report ---
INDICATION: Dyspnea Frontal chest obtained at 4:05 a.m. and compared to yesterday. Complete opacification of the right hemithorax is again noted. Perihilar infiltrate on the left side appears similar to the prior study. There is no pneumothorax or pleural fluid on the left side. IMPRESSION: Unchanged complete opacification of right hemithorax which may represent a combination of pleural fluid, atelectasis, and/or consolidation. No change in central vascular congestion and left perihilar infiltrate. CT could provide further detail if clinically warranted. Dictated by: Dictated on workstation # [id number]
[2022-09-04] MEDS ORDERED: PANTOPRAZOLE 40 MG (PROTONIX) VIAL IV SCH (09:00)
[2022-09-04] MEDS ORDERED: GLYCOPYRROLATE 0.2 MG/ML (ROBINUL) 2 ML VIAL IV PRN (09:45)
[2022-09-04] MEDS ORDERED: ARTIFICAL TEARS 0.4 ML UNIT DOSE (REFRESH PLUS) OU PRN (09:45)
[2022-09-04] MEDS ORDERED: morphine INJ 4 MG/ML 1 ML (VIAL/SYRINGE) IV PRN (09:45)
[2022-09-04] MEDS ORDERED: BISACODYL 10 MG SUPP (DULCOLAX) PR PRN (09:45)
[2022-09-04] MEDS ORDERED: ACETAMINOPHEN 650 MG SUPP (TYLENOL) PR PRN (09:45)
[2022-09-04] MEDS ORDERED: ONDANSETRON 4 MG/2 ML (SDV) Z0FRAN IVP PRN (09:45)
[2022-09-04] MEDS ORDERED: PROMETHAZINE INJ 25 MG/ML (PHENERGAN) AMP IVP PRN (09:45)
[2022-09-04] MEDS ORDERED: LORazepam 1 MG (ATIVAN) TAB SL PRN (09:45)
[2022-09-04] MEDS ORDERED: SALIVA STIMULANT MOUTH SPRAY (BIOTENE) 1.5 OZ MM PRN (09:45)
--- NOTE | 2022-09-04 10:11 | Tele-ICU Consult ---
History of Present Illness History of Present Illness Date Seen by Provider: Sep 04, 2022 Time Seen by Provider: 10:09 Date of Admission (Tele-ICU Physician , consultation) Available chart/ vitals / labs / Images reviewed H&P is from ER notes Patient's information available about PMH, Shx, Fhx allergy reviewed inEMR. ROS as per chart and RN report Now in ICU, hemodynamically stable Video assessment done using teleICU camera, rest of exam as per RN Discussed with RN. Consultants: Hospital course: A/P Acute resp failure , hypercapneic , hypoxix - BIPAP 50% / TV 700 rr 32 MV 25 L - ventilated very efficiently on this settiongs , will cont NIPPV for now since patient is arowsable - abg at 14 .oo Liver failure 9 ETON abuse , ongoing -MELD 24 , poor prognosis Encephalopathy - -check ammonia -cont NIPPV to decrease Co2 Shock - sepsis , acidois , liver failure , impending renal failure - cont pressors , albumin Ascitis - s/p para 09/03 - 12 l - will give 75 g alubin , follow -empiric abx for SBP Anuria - anticipate KAMERON - follow labs Hypoglycemia - on dextrose Patient with grave prognosis ( advbansed liver failure and continued ETOH , Infection , MOF Patient is not a transplant candidate due to current ETOH use Appropriate for hospice / comfort measure care / palliateive care ( advise this route over aggressive care ) Lines : , (Central Line Necessity Reviewed) Clark: OG: Nutrition: Analgesia: Anxiety/ delirium VTE Prophylaxis: Stress Ulcer Prophylaxis: Plans in collaboration with bedside consultants and IM MDs. Discussed with RN to reach out if any questions or concerns A total of34 minutes of critical care time was devoted to this patient today, required to treat and/or prevent further deterioration of critical care condition ( as above ) . I am remotely monitoring this patient from another state. I am unable to do the bedside exam, and history/physical and pertinent information is taken from other notes in the computer and bedside staff. I cannot take responsibility for the accuracy of this information. Reason for Visit: Abdominal ascites Allergies and Home Medications Allergies Coded Allergies: No Known Drug Allergies (Unverified , 12/07/21) Home Medications Furosemide 40 Mg Tablet, 40 MG PO 1200, (Reported) Hydroxyzine HCl 25 Mg Tablet, 25 MG PO Q8H PRN for ANXIETY, (Reported) Spironolactone 100 Mg Tablet, 100 MG PO 1200, (Reported) Past Medical/Social/Family Hx Patient Social History Marrital Status: single Employed/Student: unemployed Tobacco Use?: No (quit 3 years ago) Tobacco type used: Cigarettes (8-10yrs, 0.5 pack daily) Smoking Status: Former Smoker Smokeless Tobacco Frequency: Never a User Use of E-Cig and/or Vaping dev: No Substance use?: No Alcohol Use?: Yes Alcohol type: Hard Liquor Additional alcohol type: VODKA (3-4 DRINKS) Alcohol Frequency: Couple times a week (2-3x weekly, 2-3 drinks a day) Pt stated abuse/neglect: No Immunizations Up To Date Influenza Vaccine Up-to-Date: Yes; Up-to-Date First/Initial COVID19 Vaccinat: ? Tetanus Booster (TDap): Unknown Hepatitis A: Yes Hepatitis B: Yes Current Status Advance Directives: No Communicates: Verbally Primary Language: Kazakh Preferred Spoken Language: Kazakh Is interpretation needed?: No Implanted or Applied Medical D: CPAP Past Medical History Alcohol abuse Chronic liver failure Recurrent ascites Family Medical History Family Hx: Patient reported no family members have chronic medical conditions Review of Systems Constitutional: see HPI Focused Exam Lactate Level 09/03/22 22:05: Lactic Acid Level 8.09*H 09/03/22 23:55: Lactic Acid Level 8.92*H 09/04/22 02:05: Lactic Acid Level 8.26*H Height, Weight, BMI Height: '" Weight: lbs. oz. kg; 55.95 BMI Method: Exam Exam Patient acknowledged, consented, and participated in this virtual visit which was conducted using real time audio/video Vital Signs Date Time Temp Pulse Resp B/P (MAP) Pulse Ox O2 Delivery O2 Flow Rate FiO2 09/04/22 09:00 108 22 92/67 (75) 94 NIV Bilevel 50.00 09/04/22 08:00 35.8 09/04/22 08:00 105 28 93/51 (65) 93 NIV Bilevel 50.00 09/04/22 07:22 104 90/61 09/04/22 07:01 105 09/04/22 07:00 104 29 100/50 (67) 92 NIV Bilevel 50.00 09/04/22 06:26 105 34 92 50.00 10/19/22 06:15 105 26 94/54 (67) 92 NIV Bilevel 50.00 09/04/22 06:01 108 75/50 09/04/22 06:00 107 21 75/50 (58) 92 NIV Bilevel 50.00 09/04/22 05:00 112 39 101/59 (73) 93 NIV Bilevel 50.00 09/04/22 04:00 113 33 109/72 (84) 94 NIV Bilevel 50.00 09/04/22 03:00 120 26 112/59 (76) 94 NIV Bilevel 50.00 09/04/22 02:58 112 96 50 09/04/22 02:39 96 NIV Bilevel 50 09/04/22 02:27 116 25 94 50.00 09/04/22 02:00 117 20 111/59 (76) 95 NIV Bilevel 50.00 09/04/22 01:24 112 77/40 09/04/22 01:00 112 81/40 (54) 93 NIV Bilevel 50.00 09/04/22 01:00 112 09/04/22 00:00 121 31 89/41 (57) 94 NIV Bilevel 50.00 09/03/22 23:56 121 22 93 50.00 09/03/22 23:00 123 24 99/42 (61) 93 Nasal Cannula 5.00 09/03/22 22:45 123 40 81/37 (52) 93 Nasal Cannula 5.00 09/03/22 22:30 124 25 106/43 (64) 93 Nasal Cannula 5.00 09/03/22 22:15 126 19 104/46 (65) 93 Nasal Cannula 5.00 09/03/22 22:00 125 30 110/44 (66) 92 Nasal Cannula 5.00 09/03/22 21:45 126 23 126/56 (79) 91 Nasal Cannula 5.00 09/03/22 21:30 128 13 127/59 (81) 91 Nasal Cannula 5.00 09/03/22 21:24 129 09/03/22 21:23 38.0 129 23 115/54 (74) 91 Nasal Cannula 5.00 09/03/22 21:00 92 Nasal Cannula 4.00 09/03/22 20:29 38.4 09/03/22 20:04 38.4 126 26 111/52 (71) 94 Nasal Cannula 4.00 09/03/22 19:58 Nasal Cannula 4.00 09/03/22 19:35 37.0 09/03/22 19:02 124 09/03/22 16:16 37.0 117 28 136/61 (86) 97 Nasal Cannula 4.00 09/03/22 13:36 116 09/03/22 11:05 36.2 107 18 133/72 (92) 96 Nasal Cannula 4.00 I & O 09/04/22 07:00 Intake Total 1400 ml Output Total 77577 ml Balance -58632 ml Height & Weight Height: '" Weight: lbs. oz. kg; 55.95 BMI Method: General Appearance: Anxious, Chronically ill, Mild Distress, Other HEENT: PERRL/EOMI, Normal ENT Inspection, Pharynx Normal, Moist Mucous Membranes, Pale Conjunctivae (L), Scleral Icterus (L), Scleral Icterus (R) Neck: Full Range of Motion, Normal Inspection, Non Tender Respiratory: Chest Non Tender, Lungs Clear, No Accessory Muscle Use, No Respiratory Distress, Accessory Muscle Use, Decreased Breath Sounds Cardiovascular: No Edema, No Gallop, No JVD, No Murmur, Normal Peripheral Pulses, Tachycardia Gastrointestinal: distended, tenderness (minimal with palpation), other (fluid wave) Extremity: Normal Capillary Refill, Normal Inspection, Normal Range of Motion, Non Tender, No Calf Tenderness, No Pedal Edema Neurologic/Psychiatric: Alert, Oriented x3, No Motor/Sensory Deficits, Normal Mood/Affect Skin: Normal Color, Warm/Dry Lymphatic: No Adenopathy Results Lab Laboratory Tests 09/03/22 01:47 09/03/22 22:05 09/04/22 04:30 Assessment/Plan Assessment/Plan 1 SERENITY POLLARD MD Sep 04, 2022 10:10
--- NOTE | 2022-09-04 12:00 | Progress Note - Hospitalist ---
SUSI LEMUS 09/04/22 1200: Subjective HPI/CC On Admission Date Seen by Provider: Sep 04, 2022 Time Seen by Provider: 11:26 CC: Severe ascites HPI: This is a 42yoWM alcoholic who continues to drink ETOH even though ESLD has been diagnosed for years who presents from ER for paracestesis. Patient has a se varun ascites and can't take a deep breath due to ascites. Subjective/Events-last exam Yesterday, pt was transferred to the ICU due to declining function s/p large volume paracentesis (12,500ml) and for signs of spontaneous bacterial peritonitis and/or pneumonia. Pt was started on broad-spectrum Levaquin and placed on supportive care. Workup was remarkable for leukocytopenia, t hrombocytopenia, lactic acidosis of 8.92, elevated procalcitonin of 2.97, and hypoglycemia. Pt was placed on D10 at 75cc/hr and glucagon but hypoglycemia did not completely resolve Pt was also found to be hypotensive and was placed on pressors, but has remained hypotensive. Pt had CXR on 09/03 that showed new complete opacification of R hemithorax suspected to represent mucus plugging and complete collapse likely with pleural fluid component. Today, pt remains hypotensive at 90/61 despite being on pressors. Pt is on BiPaP with the settings 744, 26, 22, 50, and O2 sat of 94%. Pt was difficult to rouse but once awake was oriented x3. Pt's abd was still grossly distended even after the paracentesis and removal of 12.5L yesterday. Pt's urine output decreased and was .15ml/kg/hr over 7hours. In catheter bag, there was scant dark reddish urine present. Pt's prognosis is poor and care has been deigned futile. Pt was moved to DNR. Friend was called for pt. UPDATE: Pt this afternoon 09/04 ABG 09/03: pH: 7.21 pCO2: 56 pO2: 80 ABG 09/04: pH: 7.19 pCO2: 56 pO2: 77 Review of Systems unable to obtain d/t pt condition Focused Exam Lactate Level 09/03/22 22:05: Lactic Acid Level 8.09*H 09/03/22 23:55: Lactic Acid Level 8.92*H 09/04/22 02:05: Lactic Acid Level 8.26*H Objective Exam Vital Signs Vital Signs Date Time Temp Pulse Resp B/P (MAP) Pulse Ox O2 Delivery O2 Flow Rate FiO2 09/04/22 09:00 108 22 92/67 (75) 94 NIV Bilevel 50.00 09/04/22 08:00 35.8 09/04/22 08:00 50 Capillary Refill : General Appearance: Chronically ill, Moderate Distress HEENT: PERRL/EOMI, Scleral Icterus (L), Scleral Icterus (R) Neck: Normal Inspection, Supple Respiratory: Accessory Muscle Use, Crackles (diffusely R lung) Cardiovascular: No Murmur, Tachycardia Gastrointestinal: Abnormal Bowel Sounds (hypoactive), Distended Back: Normal Inspection Extremity: Pedal Edema (2+ pitting edema B/L) Neurologic/Psychiatric: No Alert; Oriented x3 Skin: Warm/Dry, Jaundice, Other (venous stasis dermatitis B/L LE) Lymphatic: No Adenopathy Comments Limited d/t pt condition Results/Procedures Lab Laboratory Tests 09/03/22 22:05 09/04/22 04:30 Patient resulted labs reviewed. Assessment/Plan Assessment and Plan Assess & Plan/Chief Complaint 1. Ascites 09/04: -Paracentesis performed by Dr. Mcdaniels yielded 12.5L of becky fluid -Ascites still present 2. 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 SOA -secondary to ascites, currently O2 sat 96% on 4L NC -3L O2 at home and CPAP 09/04: Pt placed on BiPaP and O2 sat 94% 4. Alcohol Abuse -discuss alcohol cessation -100mg Thiamine PO, 1mg Folic PO, 75mls/hr IV Dextrose prn 5. Thrombocytopenia -Plt count of 123, will continue to monitor 09/04: -Pt count decreased to 89 6. Leukopenia 09/04: -WBC decreased to 2.0 7. Lactic Acidosis 09/04: -Lactic acid of 8.92 8. Mixed metabolic-respiratory acidosis -secondary to lactic acidosis, hypoalbuminenia, and respiratory distress 9. Hyponatremia -IV NaCl started 10. Hypoalbuminemia -secondary to chronic liver failure 09/04: -2+ pitting edema present LE B/L -BP 90/61 on NE 31.29ml Q8H IV Plan: Pt this afternoon 09/04 EVETTE HARRIS DO 09/04/22 2100: Supervisory-Addendum Brief Verification & Attestation Participated in pt care: history, MDM, physical Personally performed: exam, history, MDM, supervision of care Care discussed with: Medical Student Procedures: n/a Results interpretation: Verified all documentation Verification and Attestation of Medical Student E/M Service A medical student performed and documented this service in my presence. I reviewed and verified all information documented by the medical student and made modifications to such information, when appropriate. I personally performed the physical exam and medical decision making. Evette Harris, Sep 04, 2022,21:00 SUSI LEMUS Sep 04, 2022 12:00 EVETTE HARRIS DO Sep 04, 2022 21:00
--- NOTE | 2022-09-04 15:49 | Discharge Summary ---
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 Pt was started on broad-spectrum Levaquin and placed on supportive care. Workup was remarkable for leukocytopenia, thrombocytopenia, lactic acidosis of 8.92, elevated procalcitonin of 2.97, and hypoglycemia. Pt was placed on D10 at 75cc/hr and glucagon but hypoglycemia did not completely resolve Pt was also found to be hypotensive and was placed on pressors, but has remained hypotensive. Pt had CXR on 09/03 that showed new complete opacification of R hemithorax suspected to represent mucus plugging and complete collapse likely with pleural fluid component. Today, pt remains hypotensive at 90/61 despite being on pressors. Pt is on BiPaP with the settings 744, 26, 22, 50, and O2 sat of 94%. Pt was difficult to rouse but once awake was oriented x3. Pt's abd was still grossly distended even after the paracentesis and removal of 12.5L yesterday. Pt's urine output decreased and was .15ml/kg/hr over 7hours. In catheter bag, there was scant dark reddish urine present. Pt's prognosis is poor and care has been deigned futile. Pt was moved to DNR. Friend was called for pt. Labs and Pending Lab Test: Laboratory Tests 09/03/22 22:05: White Blood Count 1.1*L, Red Blood Count 3.29L, Hemoglobin 10.5L, Hematocrit 32L , Mean Corpuscular Volume 98, Mean Corpuscular Hemoglobin 32, Mean Corpuscular Hemoglobin Concent 33, Red Cell Distribution Width 18.0H, Platelet Count 93L, Mean Platelet Volume 8.8L, Immature Granulocyte % (Auto) 2, Neutrophils (%) (Auto) 78H, Lymphocytes (%) (Auto) 11L, Monocytes (%) (Auto) 7, Eosinophils (%) (Auto) 2, Basophils (%) (Auto) 1, Neutrophils # (Auto) 0.8L, Lymphocytes # (Auto) 0.1L, Monocytes # (Auto) 0.1, Eosinophils # (Auto) 0.0, Basophils # (Auto) 0.0, Immature Granulocyte # (Auto) 0.0, Neutrophils % (Manual) 65, Lymphocytes % (Manual) 16, Monocytes % (Manual) 9, Eosinophils % (Manual) 3, Basophils % (Manual) 3, Band Neutrophils 4, Nucleated Red Blood Cells 1, Toxic Granulation 2+, Percent Immature Platelet Fraction 1.0, Polychromasia MARKED, Spherocytes MARKED, Target Cells , Tear Drop Cells SLIGHT, Ying Cells MODERATE, Crenated Cell MARKED, Rouleau MOD, Sodium Level 132L, Potassium Level 4.5, Chloride Level 98, Carbon Dioxide Level 19L, Anion Gap 15H, Blood Urea Nitrogen 14, Creatinine 0.91, Estimat Glomerular Filtration Rate 107, BUN/Creatinine Ratio 15, Glucose Level 36*L, Lactic Acid Level 8.09*H, Calcium Level 7.9L, Corrected Calcium 9.4, Total Bilirubin 5.4H, Aspartate Amino Transf (AST/SGOT) 97H, Alanine Aminotransferase (ALT/SGPT) 42, Alkaline Phosphatase 95, Total Protein 7.0, Albumin 2.1L, Procalcitonin 2.97H 09/03/22 23:00: Urine Color DARK YELLOW, Urine Clarity SL CLOUDY, Urine pH 5.0, Urine Specific [place] >=1.030, Urine Protein 1+H, Urine Glucose (UA) 1+H, Urine Ketones TRACEH , Urine Nitrite POSITIVEH, Urine Bilirubin 2+H, Urine Urobilinogen 4.0, Urine Leukocyte Esterase NEGATIVE, Urine RBC (Auto) 2+H, Urine RBC 10-25H, Urine WBC RARE, Urine Renal Epithelial Cells 0-2, Urine Crystals NONE, Urine Bacteria MODERATEH, Urine Casts PRESENT, Urine Hyaline Casts 0-2H, Urine Mucus NEGATIVE, Urine Culture Indicated YES 09/03/22 23:17: Glucometer 71 09/03/22 23:19: Blood Gas Puncture Site RR, Blood Gas Patient Temperature 37.8, Arterial Blood pH 7.21*L, Arterial Blood Partial Pressure CO2 56H, Arterial Blood Partial Pressure O2 80, Arterial Blood HCO3 21L, Arterial Blood Total CO2 23.1, Arterial Blood Oxygen Saturation 94, Arterial Blood Base Excess -5.2L, Abelino Test YES- POS, Blood Gas Ventilator Setting NO, Blood Gas Inspired Oxygen 5L 09/03/22 23:55: Lactic Acid Level 8.92*H 09/04/22 00:10: Glucometer 31*L 09/04/22 00:42: Glucometer 59*L 09/04/22 01:07: Glucometer 93 09/04/22 02:05: Lactic Acid Level 8.26*H 09/04/22 02:25: Glucometer 31*L 09/04/22 03:05: Glucometer 55*L 09/04/22 03:17: Glucometer 46*L 09/04/22 04:01: Glucometer 80 09/04/22 04:30: White Blood Count 2.0L, Red Blood Count 3.29L, Hemoglobin 10.6L, Hematocrit 34L, Mean Corpuscular Volume 102H, Mean Corpuscular Hemoglobin 32, Mean Corpuscular Hemoglobin Concent 32, Red Cell Distribution Width 18.4H, Platelet Count 89L, Mean Platelet Volume 9.7, Immature Granulocyte % (Auto) 3, Neutrophils (%) (Auto) 77H, Lymphocytes (%) (Auto) 13, Monocytes (%) (Auto) 4, Eosinophils (%) (Auto) 3, Basophils (%) (Auto) 1, Neutrophils # (Auto) 1.5L, Lymphocytes # (Auto) 0.3L, Monocytes # (Auto) 0.1, Eosinophils # (Auto) 0.1, Basophils # (Auto) 0.0, Immature Granulocyte # (Auto) 0.1, Percent Immature Platelet Fraction 2.9, Sodium Level 132L, Potassium Level 4.5, Chloride Level 99, Carbon Dioxide Level 17L, Anion Gap 16H, Blood Urea Nitrogen 14, Creatinine 0.92, Estimat Glomerular Filtration Rate 106, BUN/Creatinine Ratio 15, Glucose Level 34*L, Calcium Level 8.0L, Corrected Calcium 9.4, Phosphorus Level 3.3, Magnesium Level 1.6, Total Bilirubin 5.5H, Aspartate Amino Transf (AST/SGOT) 99H, Alanine Aminotransferase (ALT/SGPT) 41, Alkaline Phosphatase 97, Total Protein 7.1, Albumin 2.2L 09/04/22 04:39: Glucometer 55*L 09/04/22 05:05: Blood Gas Puncture Site RR, Blood Gas Patient Temperature 37, Arterial Blood pH 7.19*L, Arterial Blood Partial Pressure CO2 56H, Arterial Blood Partial Pressure O2 77L, Arterial Blood HCO3 20L, Arterial Blood Total CO2 22.1, Arterial Blood Oxygen Saturation 94, Arterial Blood Base Excess -6.6L, Abelino Test YES-POS, Blood Gas Ventilator Setting NO, Blood Gas Inspired Oxygen 50% 09/04/22 06:07: Glucometer 66L 09/04/22 07:04: Glucometer 72 09/04/22 07:58: Glucometer 60*L 09/04/22 08:31: Blood Gas Puncture Site ARTLINE, Blood Gas Patient Temperature 37.2, Arterial Blood pH 7.20*L, Arterial Blood Partial Pressure CO2 53H, Arterial Blood Partial Pressure O2 79, Arterial Blood HCO3 20L, Arterial Blood Total CO2 21.1, Arterial Blood Oxygen Saturation 94, Arterial Blood Base Excess -7.2L, Abelino Test NA, Blood Gas Ventilator Setting NO, Blood Gas Inspired Oxygen 50% 09/04/22 08:41: Glucometer 76 Microbiology 09/04/22 Blood Culture - Preliminary, Resulted No growth 09/03/22 Urine Culture - Preliminary, Resulted NO GROWTH 09/03/22 MRSA Screen - Preliminary, Resulted MRSA not isolated Home Meds Active Reported Hydroxyzine HCl 25 Mg Tablet 25 Mg PO Q8H PRN Furosemide 40 Mg Tablet 40 Mg PO 1200 Spironolactone 100 Mg Tablet 100 Mg PO 1200 Assessment/Pt Instructions Discharge Planning: <30 minutes discharge planning Discharge Physical Examination Vital Signs Vital Signs Date Time Temp Pulse Resp B/P (MAP) Pulse Ox O2 Delivery O2 Flow Rate FiO2 09/04/22 11:00 105 26 108/73 (85) 95 NIV Bilevel 50.00 09/04/22 08:00 35.8 09/04/22 08:00 50 Allergies: Coded Allergies: No Known Drug Allergies (Unverified , 12/07/21) Discharge Summary Date of Admission Sep 03, 2022 at 02:48 Date of Discharge Admission Diagnosis Severe ascites ESLD ETOH withdrawal Plan: Paracentesis Comfort Measures/ End of Life Care: Comfort Measures Discharge Diagnosis (1) Ascites Status: Acute (2) Liver cirrhosis Status: Acute Qualifiers: Qualified Codes: K70.31 - Alcoholic cirrhosis of liver with ascites LINNEA HARRIS DO Sep 04, 2022 15:49
== END 2022-09-04 11:26 | disposition expired ==
LOC: EDUNIT# 01:41 → ER 01:43 → UNDOADMOB 02:48 → 4TH 02:48 → ICU 21:33 → 4TH 21:33 → UNDODISOB 09-04 11:26
PROVIDERS: ADMIT Internal Medicine; ATTEND Internal Medicine
DX: R18.8 Other ascites (principal); K74.60 Unspecified cirrhosis of liver; K72.90 Hepatic failure, unspecified without coma; E87.1 Hypo-osmolality and hyponatremia; E88.09 Other disorders of plasma-protein metabolism, not elsewhere classified; D69.6 Thrombocytopenia, unspecified; F10.10 Alcohol abuse, uncomplicated; Z87.891 Personal history of nicotine dependence
CPT/HCPCS: 71045 ×2; 76942; 80053 ×2; 81000; 82805 ×2; 82947 ×2; 83605 ×2; 83690; 83735; 84100; 84145; 85007; 85025 ×2; 85027; 85610; 85730; 87040; 87081; 87088; 93005; 94640; 94660 ×2; 94668; 94760; 96366; 96374; 96375 ×2; 96376 ×2; 99284; G0378 ×2; 36415